=== PATIENT | female | born 1960 | race Caucasian/White ===

== ENCOUNTER → 2020-01-03 13:24 | Outpatient (BNVA) | payer BC, SELFPAY | PROVIDERS: Family Provider Family Medicine; Visit Provider Emergency Medicine | DX: Z20.828 Contact with and (suspected) exposure to other viral communicable diseases (principal) | CPT/HCPCS: 87635 ==

== ENCOUNTER → 2020-03-13 13:45 | Outpatient (BNVA) | payer BC, SELFPAY | PROVIDERS: Family Provider Family Medicine; PCP Family Medicine; Visit Provider Internal Medicine | DX: M25.50 Pain in unspecified joint (principal); R79.82 Elevated C-reactive protein (CRP); Z79.52 Long term (current) use of systemic steroids; Z79.899 Other long term (current) drug therapy; M16.10 Unilateral primary osteoarthritis, unspecified hip; F17.210 Nicotine dependence, cigarettes, uncomplicated | CPT/HCPCS: 36415; 99203; 99204 ==

== ENCOUNTER 2020-03-13 15:35 | Outpatient (CLI) | payer BC, SELFPAY ==
--- NOTE | 2020-03-13 15:45 | XR_ITS ---
WS: [id number] LEFT KNEE: 2 VIEW(S) TECHNIQUE: AP and lateral. HISTORY: R79.82 - Elevated C-reactive protein (CRP) COMPARISON: None available. No fracture or dislocation. No joint space narrowing or osteophytes. No joint effusion. No soft tissue abnormality. XR/XR knee LT 1-2V [id number] IMPRESSION: Normal LEFT knee.
--- NOTE | 2020-03-13 15:45 | XR_ITS ---
WS: [id number] Bilateral hips. HISTORY: 2 views of each hip. Very minimal degenerative changes involving the hip joints and the superior acetabulum. Mild sclerosi s with irregularity of the cortex. There is also mild bilateral inferior SI joint sclerosis and widen ing. XR/XR hip BI 3-4V wo/w pel [id number] IMPRESSION: 1. 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 2. Very mild inferior SI joint widening and sclerosis.
--- NOTE | 2020-03-13 15:45 | XR_ITS ---
WS: [id number] LEFT HAND: 2 VIEW(S) TECHNIQUE: PA and lateral. HISTORY: R79.82 - Elevated C-reactive protein (CRP) COMPARISON: None available. No acute fracture or dislocation. No soft tissue or bone abnormality. No erosions or soft tissue edema. XR/XR hand LT 2V [id number] IMPRESSION: Normal LEFT hand.
--- NOTE | 2020-03-13 15:45 | XR_ITS ---
WS: [id number] RIGHT HAND: 2 VIEW(S) TECHNIQUE: PA and lateral. HISTORY: R79.82 - Elevated C-reactive protein (CRP) COMPARISON: 06/01/2010 No acute fracture or dislocation. No soft tissue or bone abnormality. No erosions or soft tissue edema. XR/XR hand RT 2V [id number] IMPRESSION: Normal RIGHT hand.
--- NOTE | 2020-03-13 15:45 | XR_ITS ---
WS: [id number] RIGHT KNEE: 2 VIEW(S) TECHNIQUE: AP and lateral. HISTORY: R79.82 - Elevated C-reactive protein (CRP) COMPARISON: None available. No fracture or dislocation. No joint space narrowing or osteophytes. No joint effusion. No soft tissue abnormality. XR/XR knee RT 1-2V [id number] IMPRESSION: Normal RIGHT knee.
== END 2020-03-13 15:36 | disposition home or self-care (01) ==
LOC: RADWPI 15:40
PROVIDERS: PCP Family Medicine; Visit Provider Internal Medicine
DX: R79.82 Elevated C-reactive protein (CRP) (principal); M16.0 Bilateral primary osteoarthritis of hip; D86.9 Sarcoidosis, unspecified
CPT/HCPCS: 73120; 73522; 73560; 80053; 81003; 82310; 82550; 82728; 83516; 83540; 83970; 84100; 85651; 86140; 86704; 86803; 86812; 87340

== ENCOUNTER → 2020-04-08 14:11 | Outpatient (BNVA) | payer BC, SELFPAY | PROVIDERS: PCP Family Medicine; Visit Provider Internal Medicine | DX: R79.82 Elevated C-reactive protein (CRP) (principal); M25.50 Pain in unspecified joint; R76.8 Other specified abnormal immunological findings in serum; M16.9 Osteoarthritis of hip, unspecified; R21 Rash and other nonspecific skin eruption; F17.210 Nicotine dependence, cigarettes, uncomplicated | CPT/HCPCS: 99214 ==

== ENCOUNTER 2020-07-28 13:02 | Outpatient (CLI) | payer BC, SELFPAY ==
[2020-07-28 13:27] LABS: Basophils % 0.6 %; Eosinophils # 0.1 10^3/uL (0.0-0.8); Eosinophils % 1.9 %; Hematocrit 46.6 % (37.0-47.0); Lymphocytes # 1.9 10^3/uL (0.8-4.8); Lymphocytes % 27.5 %; Mean Corpuscular HGB Conc 32.2 g/dL (30.0-36.0); Mean Corpuscular Hemoglobin 29.2 pg (28.0-34.0); Mean Corpuscular Volume 90.7 fL (81-99); Mean Platelet Volume 9.9 fL (7.4-10.4); Monocytes # 0.4 10^3/uL (0.2-0.9); Monocytes % 5.8 %; Neutrophils # 4.34 10^3/uL (1.8-7.7); Neutrophils % 64.1 %; Nucleated Red Blood Cells % 0 %; Platelet Count 226 10^3/cmm (130-400); Red Blood Count 5.14 10^6/uL (4.1-5.3); Red Cell Distribution Width 13.6 % (12.1-15.1); White Blood Count 6.8 10^3/uL (4.0-10.0)
[2020-07-28 14:13] LABS: Alanine Aminotransferase 13 U/L (0-33); Albumin Level 4.4 g/dL (3.5-5.2); Alkaline Phosphatase 88 IU/L (35-105); Anion Gap 14.2 (5-19); Aspartate Amino Transferase 17 U/L (0-32); Blood Urea Nitrogen 16 mg/dL (6-20); C Reactive Protein 6.1 mg/L (0.0-4.9); Calcium 9.3 mg/dL (8.5-10.5); Carbon Dioxide 25 mmol/L (22-29); Chloride 104 mmol/L (98-107); Globulin 2.7 g/dL (1.3-4.6); Glomerular Filtration Rate 64.3 mL/min (90-130); Glucose 78 mg/dL (65-115); Osmolality Calculated 288 mOsm/kg (285-295); Potassium 4.2 mmol/L (3.5-5.1); Sodium 139 mmol/L (136-145); Total Bilirubin 0.3 mg/dL (0.15-1.2); Total Protein 7.1 g/dL (6.6-8.7)
[2020-07-28 15:20] LABS: Erythrocyte Sedimentation Rate 11 mm/hr (0-15)
== END 2020-07-28 13:03 | disposition home or self-care (01) ==
PROVIDERS: PCP Family Medicine; Visit Provider Internal Medicine
DX: M16.9 Osteoarthritis of hip, unspecified (principal); R76.8 Other specified abnormal immunological findings in serum; R79.82 Elevated C-reactive protein (CRP); Z79.899 Other long term (current) drug therapy
CPT/HCPCS: 36415; 80053; 85025; 85651; 86140

== ENCOUNTER → 2020-07-31 08:48 | Outpatient (BNVA) | payer BC, SELFPAY | PROVIDERS: PCP Family Medicine; Visit Provider Internal Medicine | DX: R79.82 Elevated C-reactive protein (CRP) (principal); R76.8 Other specified abnormal immunological findings in serum; M25.50 Pain in unspecified joint; Z79.899 Other long term (current) drug therapy; R21 Rash and other nonspecific skin eruption; F17.210 Nicotine dependence, cigarettes, uncomplicated | CPT/HCPCS: 99213; 99214 ==

== ENCOUNTER 2022-05-21 10:04 | Outpatient (CLI) | payer OTHER, SELFPAY ==
--- NOTE | 2022-05-21 10:16 | US_ITS ---
WS: [id number] URINARY BLADDER ULTRASOUND HISTORY: Symptom; incomplete BLADDER EMPTYING COMPARISON: None available. Urinary bladder is well distended. No intraluminal filling defect. No free fluid adjacent to the urin gerald bladder. Prevoid volume is 478 cc. Post void volume 192 cc. US/ bladder [id number] Impression: 1. Normally distended urinary bladder with no intraluminal filling defect. 2. Moderate post void residual. Incomplete emptying of the urinary bladder.
== END 2022-05-21 10:05 | disposition home or self-care (01) ==
PROVIDERS: PCP Family Medicine; Visit Provider Family Medicine
DX: R39.14 Feeling of incomplete bladder emptying (principal)
CPT/HCPCS: 76857

== ENCOUNTER → 2022-06-23 16:00 | Outpatient (BNVA) | payer OTHER, SELFPAY | PROVIDERS: PCP Family Medicine; Referring Provider Family Medicine; Visit Provider Obstetrics & Gynecology | DX: R33.9 Retention of urine, unspecified (principal); Z12.4 Encounter for screening for malignant neoplasm of cervix | CPT/HCPCS: 84315; 87086; 87624 ==

== ENCOUNTER → 2022-07-02 10:52 | Outpatient (BNVA) | payer OTHER, SELFPAY | PROVIDERS: PCP Family Medicine; Referring Provider Nurse Practitioner Family; Visit Provider Nurse Practitioner Family | DX: L82.1 Other seborrheic keratosis (principal); L30.9 Dermatitis, unspecified; D48.5 Neoplasm of uncertain behavior of skin; L85.3 Xerosis cutis | CPT/HCPCS: 11103; 11104; 99203 ==

== ENCOUNTER → 2022-07-10 11:41 | Outpatient (BNVA) | payer OTHER, SELFPAY | PROVIDERS: PCP Family Medicine; Visit Provider Registered Nurse Neonatal Intensive Care | DX: R30.0 Dysuria (principal) | CPT/HCPCS: 81000; 87077; 87086; 87184 ==

== ENCOUNTER → 2022-07-28 08:40 | Outpatient (BNVA) | payer OTHER, SELFPAY | PROVIDERS: PCP Family Medicine; Visit Provider Obstetrics & Gynecology | DX: R32 Unspecified urinary incontinence (principal); R10.2 Pelvic and perineal pain | CPT/HCPCS: 76830 ==

== ENCOUNTER → 2022-10-28 15:25 | Outpatient (BNVA) | payer OTHER, SELFPAY | PROVIDERS: PCP Family Medicine; Visit Provider Obstetrics & Gynecology | DX: R10.2 Pelvic and perineal pain (principal) | CPT/HCPCS: 76830 ==

== ENCOUNTER 2023-03-16 11:54 | Outpatient (CLI) | payer OTHER, SELFPAY ==
--- NOTE | 2023-03-16 | MM_ITS ---
WS: [id number] Bilateral screening 3D tomosynthesis digital mammogram, 03/16/2023 Clinical Data: SCREENING Comparison: None. Findings: The breast parenchymal pattern shows fibroglandular tissue. No spiculated masses or clustered calcifi cations are seen. There are no secondary signs of carcinoma. There are lymph nodes in both axilla. Impression: 1. Negative bilateral mammogram with no prior exam for review. 2. Recommend annual screening mammograms. MM/[place] [id number] BIRADS: 1-Negative FOLLOW UP: 1 Year Follow-up The CAD color checker was used.
== END 2023-03-16 11:55 | disposition home or self-care (01) ==
LOC: RAD 11:54
PROVIDERS: PCP Family Medicine; Visit Provider Family Medicine
DX: Z12.31 Encounter for screening mammogram for malignant neoplasm of breast (principal)
CPT/HCPCS: 77063; 77067

== ENCOUNTER 2023-10-06 10:28 | Emergency (ER) | payer OTHER, SELFPAY ==
[2023-10-06 11:03] VITALS: BP 111/57; PULSE 90; RESP 20; TEMP 36.6; O2SAT 98; BMI 33.0
--- NOTE | 2023-10-06 12:31 | ED_ITS ---
HPI - Female Genitourinary 2 General: Chief complaint: Urogenital-Female Stated complaint: abd and back pain Time Seen by Provider: 10/06/23 11:56 History of Present Illness: 63-year-old female presents emergency ro om complaining of left side pain radiates down into the groin. She has noticed increased in frequency of urination but no hematuria or dysuria. When I talked to the patient she localized the pain more to the left lower quadrant. She denies any diarrhea no hematochezia or melena. No chest pain or shortness of breath. No radiation of discomfort into the left leg. No recent trauma. Associated symptoms: Reports abdominal pain Related Data Home Medications Medication Instructions Recorded Confirmed loratadine 10 mg tablet 10 mg PO DAILY 10/06/23 10/06/23 temazepam 15 mg capsule 15 mg PO BEDTIME PRN sleep 10/06/23 10/06/23 Previous Rx's Medication Instructions Recorded albuterol sulfate 90 mcg/actuation 2 puff inhalation Q4H PRN 01/01/23 aerosol inhaler shortness of breath or wheezing #8.5 grams benzonatate 200 mg capsule 200 mg PO TID PRN cough #20 caps 01/01/23 bethanechol chloride 25 mg tablet 25 mg PO TID #90 tabs 03/18/23 cyclobenzaprine 5 mg tablet 5 mg PO TID PRN muscle spasm #20 05/02/23 tabs diclofenac sodium 75 mg 75 mg PO Q12H PRN pain #20 tabs 10/06/23 tablet,delayed release Allergies Allergy/AdvReac Type Severity Reaction Status Date / Time amoxicillin Allergy rash Verified 05/02/23 13:48 Review of Systems 2 Const: Denies: fever(s) or chills Card: Denies: chest pain Resp: Denies: dyspnea GI: Reports: abdominal pain : Reports: flank pain and urinary frequency; Denies: dysuria or urinary urgency Musc: Denies: neck pain or back pain Skin/Breast: Denies: rash PFSH ED 2 PFSH: Family History Father Hypertension Mother Dementia Diabetes Denies family history of Colon cancer Ovarian cancer Heart disease Breast cancer Uterine cancer Thyroid disease Stroke Physical Exam 2 Const: GENERAL APPEARANCE: cooperative ORIENTATION/CONSCIOUSNESS: Yes awake, Yes oriented to person, Yes oriented to place and Yes oriented to time HENMT: COMMON NORMALS: normocephalic, atraumatic and hearing grossly normal bilaterally HEAD & SCALP: normocephalic and atraumatic Resp: COMMON NORMALS: normal respiratory effort, No retractions, No use of accessory muscles and clear to auscultation bilaterally AUSCULTATION: clear to auscultation bilaterally Cardio: COMMON NORMALS: regular rate, regular rhythm and No murmurs present (Cardio) RATE: regular rate RHYTHM: regular rhythm GI: COMMON NORMALS: Soft to palpation and No hepatosplenomegaly present A USCULTATION: Yes normoactive bowel sounds PALPATION: Yes Soft to palpation, No Tenderness to palpation present (GI), No Guarding due to palpation present (GI) and Yes No hepatosplenomegaly present Extremity: COMMON NORMALS: normal to inspection, capillary refill normal, no clubbing, cyanosis or edema, no calf tenderness and no pedal edema Neuro: SENSORIUM/ORIENTATION: Yes oriented to person, Yes oriented to place and Yes oriented to time Skin: COMMON NORMALS: no rashes or lesions noted GENERAL SKIN EXAM: no rashes or lesions noted Course 2 Vital Signs: Vital signs: Vital Signs Temperature 97.8 F 10/06/23 11:03 Pulse Rate 87 10/06/23 15:17 Respiratory Rate 20 H 10/06/23 11:03 Blood Pressure 138/71 10/06/23 15:17 Pulse Oximetry 97 10/06/23 15:17 Oxygen Delivery Me thod Room Air 10/06/23 15:00 MDM - Female Medical Decision Making Labs and imaging reviewed no leukocytosis. No hematuria no signs of cystitis. Very slight elevation in alk phos probably not clinically significant at this point. Patient has colonic diverticulosis without acute diverticulitis no other significant finding made. Suspect this may be more muscle strain. It is possible that she passed this stone but there is no evidence of using her urine or evidence of residual hydronephrosis or dilation of the ureters. Discharge home clear liquid diet advance as tolerated recheck if not improving Medical Records I reviewed the patient's medical records. Lab Data I reviewed the patient's lab results. 10/06/23 12:41 10/06/23 12:41 Radiology Impressions Abdomen/Pelvis CT 10/06/23 13:10 IMPRESSION: 1. No renal obstruction or calcifications. No hydronephrosis. 2. Mild distal colonic diverticulosis without acute diverticulitis. 3. No free fluid or adenopathy. 4. Mild atherosclerosis aorta. Laboratory Results WBC 9.11 10^3/uL (3.29-11.43) 10/06/23 12:41 RBC 5.62 10^6/uL (3.85-5.65) 10/06/23 12:41 Hgb 16.10 g/dL (11.27-16.99) 10/06/23 12:41 Hct 50.9 % (36-47) H 10/06/23 12:41 MCV 90.6 fl (85-98) 10/06/23 12:41 MCH 28.6 pg (27-33) 10/06/23 12:41 MCHC 31.6 g/dL (30-55) 10/06/23 12:41 RDW 13.6 % (12.1-15.1) 10/06/23 12:41 Plt Count 299 10^3/cmm (157-399) 10/06/23 12:41 MPV 9.8 fL (7.4-10.4) 10/06/23 12:41 Neut % (Auto) 68.8 % 10/06/23 12:41 Lymph % (Auto) 23.4 % 10/06/23 12:41 [place] % (Auto) 5.6 % 10/06/23 12:41 Eos % (Auto) 1.4 % 10/06/23 12:41 Baso % (Auto) 0.5 % 10/06/23 12:41 Neut # (Auto) 6.26 10^3/uL (1.8-7.7) 10/06/23 12:41 Lymph # (Auto) 2.1 10^3/uL (0.8-4.8) 10/06/23 12:41 [place] # (Auto) 0.5 10^3/uL (0.2-0.9) 10/06/23 12:41 Eos # (Auto) 0.1 10^3/uL (0.0-0.8) 10/06/23 12:41 Baso # (Auto) 0.1 10^3/uL (0.0-0.1) 10/06/23 12:41 Nucleated RBC % (auto) 0 % 10/06/23 12:41 Nucleated RBCs # 0.0 /100WBC 10/06/23 12:41 Sodium 142 mmol/L (136-145) 10/06/23 12:41 Potassium 4.5 mmol/L (3.5-5.1) 10/06/23 12:41 Chloride 103 mmol/L (98-107) 10/06/23 12:41 Carbon Dioxide 25 mmol/L (22-29) 10/06/23 12:41 Anion Gap 18.5 (5-19) 10/06/23 12:41 BUN 21 mg/dL (8-23) 10/06/23 12:41 Creatinine 0.9 mg/dL (0.5-0.9) 10/06/23 12:41 GFR Calculation 63.4 mL/min (90-130) L 10/06/23 12:41 Glucose 102 mg/dL (65-115) 10/06/23 12:41 Calculated Osmolality 297 mOsm/kg (285-295) H 10/06/23 12:41 Calcium 9.9 mg/dL (8.5-10.5) 10/06/23 12:41 Total Bilirubin 0.4 mg/dL (0.15-1.2) 10/06/23 12:41 AST 13 U/L (0-32) 10/06/23 12:41 ALT 13 U/L (0-33) 10/06/23 12:41 Alkaline Phosphatase 109 U/L (35-105) H 10/06/23 12:41 Total Protein 8.1 g/dL (6.6-8.7) 10/06/23 12:41 Albumin 4.7 g/dL (3.5-5.2) 10/06/23 12:41 Globulin 3.4 g/dL (1.3-4.6) 10/06/23 12:41 Lipase 15 U/L (13-60) 10/06/23 12:41 Urine Color Yellow (Yellow) 10/06/23 12:04 Urine Appearance Clear (CLEAR) 10/06/23 12:04 Urine pH 6.5 (5-7) 10/06/23 12:04 Ur Specific [place] 1.005 (1.005-1.030) 10/06/23 12:04 Urine Protein Negative (Negative) 10/06/23 12:04 Urine Glucose (UA) Negative (Normal) 10/06/23 12:04 Urine Ketones Negative (Negative) 10/06/23 12:04 Urine Blood Negative (Negative) 10/06/23 12:04 Urine Nitrate Negative (Negative) 10/06/23 12:04 Urine Bilirubin Negative (Negative) 10/06/23 12:04 Urine Urobilinogen 0.2 mg/dL (Negative) 10/06/23 12:04 Ur Leukocyte Esterase Negative (Negative) 10/06/23 12:04 Urine RBC 0-2 /hpf (0-2) 10/06/23 12:04 Urine WBC 0-5 /hpf (0-5) 10/06/23 12:04 Ur Squamous Epith Cells 0-5 /hpf (0-5) 10/06/23 12:04 Amorphous Sediment Not Reportable 10/06/23 12:04 Urine Bacteria None seen /hpf (NONE) 10/06/23 12:04 Hyaline Casts 0-4 /lpf H 10/06/23 12:04 All radiology interpretation(s) finalized by discharge Discharge Plan Discharge Patient Disposition: Home Clinical Impression: Muscular abdominal pain in left flank Condition: Stable Prescriptions: New diclofenac sodium 75 mg tablet,delayed release (DR/EC) 75 mg PO Q12H PRN (Reason: pain) Qty: 20 0RF No Action cyclobenzaprine 5 mg tablet 5 mg PO TID PRN (Reason: muscle spasm) Qty: 20 0RF albuterol sulfate 90 mcg/actuation HFA aerosol inhaler 2 puff inhalation Q4H PRN (Reason: shortness of breath or wheezing) Qty: 8.5 0RF benzonatate 200 mg capsule 200 mg PO TID PRN (Reason: cough) Qty: 20 0RF bethanechol chloride 25 mg tablet 25 mg PO TID Qty: 90 1RF loratadine 10 mg tablet 10 mg PO DAILY temazepam 15 mg capsule 15 mg PO BEDTIME PRN (Reason: sleep) Discharge Orders: Discharge ED (Routine); Ordered 10/06/23 Ordered By: Herber Mercado Referrals: Althea Luna DO [Primary Care Provider] - Discharge Diet: Usual diet Discharge Activity: Increase activity as tolerated Patient Instructions: Abdominal Pain (ED), Opioid Safety, Pain Management Activity Restrictions/Additional Instructions: Thank you for choosing [facility] for your healthcare needs today. It is very important that you follow up as instructed or that you return to the Emergency Department should you have concerns or if your condition changes or worsens in any way. You were seen today for complaint of left flank pain. There is no sign of blood in your urine or infection. CT did not show any acute abnormalities your white count was normal your electrolytes and kidney function were also normal. Given the positional aspect of this suspect it is musculoskeletal in nature. You can continue to use the cyclobenzaprine you were previously prescribed as needed additionally can use diclofenac as needed follow-up with your primary care doctor. Coding Level of Care Code ED Sales Account Representative for Gerri Tolbert
[2023-10-06 12:36] LABS: Charge for UA Resulting for Rev
[2023-10-06 12:43] LABS: Bilirubin Urine Negative (Negative); Blood Urine Negative (Negative); Glucose Urine UA Negative (Normal); Ketones Urine Negative (Negative); Leukocyte Esterase Urine Negative (Negative); Nitrate Urine Negative (Negative); Protein Urine Negative (Negative); Specific Gravity, Urine 1.005 (1.005-1.030); Urine Appearance Clear (CLEAR); Urine Color Yellow (Yellow); Urobilinogen Urine 0.2 mg/dL (Negative); pH Urine 6.5 (5-7)
[2023-10-06] MEDS: sodium chloride 0.9% 1,000 ML 999 ML IV (12:43)
[2023-10-06] MEDS: ondansetron 2 mg/ML SDV 2 mL 4 MG IVP (12:43)
[2023-10-06 12:47] LABS: Basophils # 0.1 10^3/uL (0.0-0.1); Basophils % 0.5 %; Eosinophils # 0.1 10^3/uL (0.0-0.8); Eosinophils % 1.4 %; Hematocrit 50.9 % (36-47); Lymphocytes # 2.1 10^3/uL (0.8-4.8); Lymphocytes % 23.4 %; Mean Corpuscular HGB Conc 31.6 g/dL (30-55); Mean Corpuscular Hemoglobin 28.6 pg (27-33); Mean Corpuscular Volume 90.6 fl (85-98); Mean Platelet Volume 9.8 fL (7.4-10.4); Monocytes # 0.5 10^3/uL (0.2-0.9); Monocytes % 5.6 %; Neutrophils # 6.26 10^3/uL (1.8-7.7); Neutrophils % 68.8 %; Nucleated Red Blood Cells % 0 %; Platelet Count 299 10^3/cmm (157-399); Red Blood Count 5.62 10^6/uL (3.85-5.65); Red Cell Distribution Width 13.6 % (12.1-15.1); White Blood Count 9.11 10^3/uL (3.29-11.43)
[2023-10-06 12:49] LABS: Bacteria Urine None Seen /hpf; Hyaline Casts Urine 0-4 /lpf; RBC Urine 0-2 /hpf (0-2); Squamous Epithelial Cell Urine 0-5 /hpf (0-5); WBC Urine 0-5 /hpf (0-5)
[2023-10-06 13:04] LABS: Alanine Aminotransferase 13 U/L (0-33); Albumin Level 4.7 g/dL (3.5-5.2); Alkaline Phosphatase 109 U/L (35-105); Anion Gap 18.5 (5-19); Aspartate Amino Transferase 13 U/L (0-32); Blood Urea Nitrogen 21 mg/dL (8-23); Calcium 9.9 mg/dL (8.5-10.5); Carbon Dioxide 25 mmol/L (22-29); Chloride 103 mmol/L (98-107); Globulin 3.4 g/dL (1.3-4.6); Glomerular Filtration Rate 63.4 mL/min (90-130); Glucose 102 mg/dL (65-115); Lipase 15 U/L (13-60); Osmolality Calculated 297 mOsm/kg (285-295); Potassium 4.5 mmol/L (3.5-5.1); Sodium 142 mmol/L (136-145); Total Bilirubin 0.4 mg/dL (0.15-1.2); Total Protein 8.1 g/dL (6.6-8.7)
--- NOTE | 2023-10-06 13:10 | CT_ITS ---
WS: [id number] CT ABDOMEN AND PELVIS NONCONTRAST HISTORY: Abdominal pain, LEFT flank pain. TECHNIQUE: Imaging performed through the abdomen and pelvis. Coronal and sagittal reformats are submi tted. All CT scans at [facility] use at least one of these dose optimization techniques: auto mated exposure control; mA and/or kV adjustment per patient size (includes targeted exams where dose is matched to clinical indication); or iterative reconstruction. DLP: 783.40 mGy.cm COMPARISON: None available. Lower thorax: Lung bases are clear. Visualized heart is normal. No hiatal hernia. Liver: Normal size liver. No mass or bile duct dilatation. Gallbladder: Normal gallbladder. No pericholecystic fluid or cholelithiasis. No gallbladder wall thic [place]. Pancreas: Normal size and attenuation. Normal pancreatic duct. No pancreatitis or mass. Spleen: Normal. Adrenal glands: Normal RIGHT adrenal gland. Very slight thickening of the lateral limb LEFT adrenal g land. Right kidney: Normal size kidney with no mass or hydronephrosis. Left kidney: Normal size kidney with no mass or hydronephrosis. Aorta: Mild atherosclerosis abdominal aorta with no aneurysm. No free fluid, intraperitoneal air or significant lymphadenopathy. GI tract: Normally distended stomach. No small bowel obstruction. Normal appendix. Mild descending an d sigmoid diverticular burden without acute diverticulitis. Abdominal wall: Small umbilical hernia contains fat only. Pelvis: No free fluid. Uterus is present. No pelvic mass. Urinary bladder is minimally distended. Osseous structures: Unremarkable. CT/CT abdomen pelvis wo con [id number] IMPRESSION: 1. No renal obstruction or calcifications. No hydronephrosis. 2. Mild distal colonic diverticulosis without acute diverticulitis. 3. No free fluid or adenopathy. 4. Mild atherosclerosis aorta.
[2023-10-06 15:00] VITALS: BP 138/71; PULSE 87; O2SAT 97
[2023-10-06 15:17] VITALS: BP 138/71; PULSE 87; O2SAT 97
== END 2023-10-06 15:23 | disposition home or self-care (01) ==
PROVIDERS: Emergency Provider Family Medicine; PCP Family Medicine
DX: M79.18 Myalgia, other site (principal)
CPT/HCPCS: 74176; 80053; 81003; 81015; 83690; 85025; 96374; 99285; J2405; J7030

== ENCOUNTER 2024-01-04 11:15 | Outpatient (CLI) | payer OTHER, SELFPAY ==
--- NOTE | 2024-01-04 11:20 | XR_ITS ---
WS: [id number] Exam: XR hip LT 2-3V wo/w pel* [id number] Date/Time of Exam: 01/04/2024 11:33 AM Reason For Exam: LOW BACK PAIN Comparison 03/13/2020. No fracture noted. Minimal degenerative change of the acetabulum. Normal soft tissues. XR/XR hip LT 2-3V wo/w pel* [id number] IMPRESSION: 1. Minimal DJD. No change.
== END 2024-01-04 11:16 | disposition home or self-care (01) ==
LOC: RAD 11:17
PROVIDERS: PCP Family Medicine; Visit Provider Family Medicine
DX: M54.50 Low back pain, unspecified (principal)
CPT/HCPCS: 73502

== ENCOUNTER 2024-01-11 11:00 | Outpatient (CLI) | payer OTHER, SELFPAY ==
--- NOTE | 2024-01-11 11:06 | XRR_ITS ---
PROCEDURE INFORMATION: Exam: XR Lumbosacral Spine Exam date and time: 01/11/2024 11:09 AM Age: 63 years old Clinical indication: Low back pain; Patient HX: Pain lower back and left hip xfew years, no specific injury, no numbness or tingling TECHNIQUE: Imaging protocol: Radiologic exam of the lumbosacral spine. Views: 6 or more views. Including flexion and extension views. COMPARISON: CR XR hip LT 2-3V wo/w pel* [id number] 01/04/2024 11:31 AM FINDINGS: Bones/joints: Multilevel [id number] disc space narrowing and productive degenerative endplate changes throughout the spine. Soft tissues: Unremarkable. Vasculature: Scattered vascular calcifications. XR/XR lumbar spine 6V w f/e [id number] IMPRESSION: 1. Multilevel [id number] disc space narrowing and productive degenerative endplate changes throughout the spine. 2. Scattered vascular calcifications.
== END 2024-01-11 11:01 | disposition home or self-care (01) ==
LOC: RAD 11:01
PROVIDERS: PCP Family Medicine; Visit Provider Family Medicine
DX: M99.63 Osseous and subluxation stenosis of intervertebral foramina of lumbar region (principal)
CPT/HCPCS: 72114

== ENCOUNTER 2024-07-29 11:44 | Emergency (ER) | payer MEDICAID, SELFPAY ==
--- NOTE | 2024-07-29 11:51 | CTR_ITS ---
PROCEDURE INFORMATION: Exam: CT Head Without Contrast Exam date and time: 07/29/2024 11:55 AM Age: 64 years old Clinical indication: Stroke-like symptoms; Altered mental status/memory loss and speech disturbance; Additional info: Symptoms of acute stroke TECHNIQUE: Imaging protocol: Computed tomography of the head without contrast. Radiation optimization: All CT scans at this facility use at least one of these dose optimization techniques: automated exposure control; mA and/or kV adjustment per patient size (includes targeted exams where dose is matched to clinical indication); or iterative reconstruction. Other technique: STROKE PROTOCOL was implemented. COMPARISON: CT head wo con* [id number] 10/18/2018 9:00 PM RADIATION DOSE METRICS: Total DLP (mGy-cm): 1028.65 FINDINGS: Brain: Normal. No hemorrhage. Unremarkable white matter. No mass effect. Cerebral ventricles: No ventriculomegaly. Paranasal sinuses: Frothy secretions in the left sphenoid sinus and bilateral maxillary sinuses. Mastoid air cells: Visualized mastoid air cells are well aerated. Bones: Unremarkable. No acute fracture. Soft tissues: Unremarkable. CT/CT head thrombolytic [id number] IMPRESSION: No large territorial infarct or intracranial bleed. ASSESSMENT: ASPECTS ([place] Stroke Program Early CT Score) is 10.
--- NOTE | 2024-07-29 11:55 | ED_ITS ---
HPI - Neuro Symptoms/Deficit 2 General: Chief Complaint: Neuro Symptoms/Deficit Stated Complaint: stroke like symptoms (sent by ems) Time Seen by Provider: 07/29/24 11:55 Source: patient Mode of arrival: ambulatory Limitations: no limitations History of Present Illness: 64-year-old female states that 2 hours a go she is having strokelike symptoms. Family states that she is having weakness in her left arm and dropped her cup she had had slurred speech confusion and was drooling out of her mouth. Since then her symptoms are completely resolved she is back to her baseline no history of strokes or TIAs in the past denies any headache or fever Associated symptoms: Deny chest pain, headache(s), nausea or vomiting Related Data Home Medications ?Medication ?Instructions ?Recorded ?Confirmed loratadine 10 mg tablet 10 mg PO DAILY 10/06/2309/15 temazepam 15 mg capsule 15 mg PO BEDTIME PRN sleep 0 10/06/23 10/06/23 Previous Rx's ?Medication ?Instructions ?Recorded albuterol sulfate 90 mcg/actuation 2 puff inhalation Q 4H PRN 01/01/23 aerosol inhaler shortness of breath or wheez ing #8.5 grams benzonatate 200 mg capsule 200 mg PO TID PRN cough #20 caps 01/01/23 bethanechol chloride 25 mg tablet 25 mg PO TID #90 tab s 03/18/23 cyclobenzaprine 5 mg tablet 5 mg PO TID PRN muscle spa sm #20 05/02/23 tabs diclofenac sodium 75 mg 75 mg PO Q12H PRN pain #20 t abs 10/06/23 tablet,delayed release aspirin 81 mg capsule 81 mg PO DAILY #30 caps 07/15 07/08 atorvastatin 80 mg tablet (Lipitor) 80 mg PO DAILY #30 tabs 07/29/24 Allergies Allergy/AdvReac Type Severity Reaction Status Date / Time amoxicillin Allergy rash Verified 05/02/23 13:48 Review of Systems 2 Const: Denies: fever(s), chills, body aches or change in appetite Eyes: Denies: blurry vision or eye discomfort ENMT: Denies: throat pain or dental pain Card: Denies: chest pain Resp: Denies: dyspnea GI: Denies: abdominal pain, nausea, vomiting or diarrhea Musc: Denies: neck pain or back pain Skin/Breast: Denies: rash Neuro: Reports: weakness in extremities, confusion and Slurred speech present; Denies: headache(s) PFSH ED 2 PFSH: Family History Father Hypertension Mother Dementia Diabetes Denies family history of Colon cancer Ovarian cancer Heart disease Breast cancer Uterine cancer Thyroid disease Stroke NIH stroke score 2 NIHSS: Level Of Consciousness - 1a: 0 Level Of Consciousness Questions - 1b: Both Correct Level Of Consciousness Commands - 1c: Both Correct Best Gaze - 2: Normal Visual Vega - 3: No Visual Loss Facial Palsy - 4: N ormal Motor Arm Right - 5: No Drift Motor Arm Left - 5: No Drift Motor Leg Right - 6: No Drift Motor Leg Left - 6: No Drift Limb Ataxia - 7: A bsent Sensory - 8: Normal Best Language - 9: No Aphasia Dysarthia - 10: Normal Extinction And Inattention - 11: 0 Score: Total Score: 0 Physical Exam 2 Const: COMMON NORMALS: no acute distress, patient oriented x3 and healthy appearing HENMT: COMMON NORMALS: normocephalic and atraumatic HEAD & SCALP: n ormocephalic and atraumatic Neck/C-Spine: COMMON NORMALS: full ROM and supple Chest: COMMONS NORMALS: normal inspection of the chest Resp: COMMON NORMALS: normal respiratory effort, No retractions, No use of accessory muscles and clear to auscultation bilaterally AUSCULTATION: clear to auscultation bilaterally Cardio: COMMON NORMALS: regular rhythm and No murmurs present (Cardio) R ATE: tachycardic RHYTHM: regular rhythm GI: COMMON NORMALS: Normal to inspection, nondistended, normoactive bowel sounds present, Soft to palpation, non-tender and no masses PALPATION: Yes Soft to palpation Extremity: COMMON NORMALS: normal to inspection and full ROM Neuro: COMMON NORMALS: patient oriented x3, moves all extremities and no focal motor deficits CRANIAL NERVES: Yes CN normal except as noted SPEECH: s peech normal MOTOR EXAM: 5/5 motor strength present throughout Psych: COMMON NORMALS: mental status grossly normal, Normal thought process present and cooperative THOUGHT PROCESS: Normal thought process present Skin: COMMON NORMALS: no rashes or lesions noted and no wounds GENERAL SKIN EXAM: no rashes or lesions noted Course 2 Vital Signs: Vital signs: Vital Signs Temperature 98.1 F 06/15/25 11:59 Pulse Rate 98 07/29/24 13:06 Respiratory Rate 18 07/29/24 11:59 Blood Pressure 142/76 07/29/24 13:06 Pulse Oximetry 94 07/29/24 13:06 Oxygen Delivery Me thod Room Air 07/29/24 11:59 MDM - Neuro Symptoms/Deficit Medical Decision Making Patient presents for likely TIA. She is back to her normal NIH is 0 CT scan here is negative. I did recommend admission she states she would like to go home we will start her on statin aspirin and get her follow-up with neurology Medical Records I reviewed the patient's medical records. Lab Data I reviewed the patient's lab results. 07/29/24 12:22 07/29/24 12:[address] 07/29/24 11:51 IMPRESSION: No large territorial infarct or intracranial bleed. ASSESSMENT: ASPECTS ([place] Stroke Program Early CT Score) is 10. ADDENDUM: 07/29/24 1209 THIS REPORT CONTAINS FINDINGS THAT MAY BE CRITICAL TO PATIENT CARE. The findings were verbally communicated via telephone conference with CALOS PEÑA at 12:07 PM CDT on 07/29/2024. The findings were acknowledged and understood. Laboratory Results WBC 9.45 10^3/uL (3.29-11.43) 07/29/24 12:22 RBC 5.30 10^6/uL (3.85-5.65) 07/29/24 12:22 Hgb 15.30 g/dL (11.27-16.99) 07/29/24 12:22 Hct 50.6 % (36-47) H 07/29/24 12:22 MCV 95.5 fl (85-98) 07/29/24 12:22 MCH 28.9 pg (27-33) 07/29/24 12:22 MCHC 30.2 g/dL (30-55) 07/29/24 12:22 RDW 13.9 % (12.1-15.1) 07/29/24 12:22 Plt Count 213 10^3/cmm (157-399) 07/29/24 12:22 MPV 10.5 fL (7.4-10.4) H 07/29/24 12:22 Neut % (Auto) 83.8 % 07/29/24 12:22 Lymph % (Auto) 11.5 % 07/29/24 12:22 Jack % (Auto) 3.4 % 07/29/24 12:22 Eos % (Auto) 0.7 % 07/29/24 12:22 Baso % (Auto) 0.4 % 07/29/24 12:22 Neut # (Auto) 7.91 10^3/uL (1.8-7.7) H 07/29/24 12:22 Lymph # (Auto) 1.1 10^3/uL (0.8-4.8) 07/29/24 12:22 Jack # (Auto) 0.3 10^3/uL (0.2-0.9) 07/29/24 12: Eos # (Auto) 0.1 10^3/uL (0.0-0.8) 07/29/24 12: Baso # (Auto) 0.0 10^3/uL (0.0-0.1) 07/29/24 12: Nucleated RBC % (auto) 0 % 07/29/24 12: Nucleated RBCs # 0.0 /100WBC 07/29/24 12:22 Sodium 138 mmol/L (136-145) 07/29/24 12:22 Potassium 4.1 mmol/L (3.5-5.1) 07/29/24 12:22 Chloride 104 mmol/L (98-107) 07/29/24 12:22 Carbon Dioxide 22 mmol/L (22-29) 07/29/24 12:22 Anion Gap 16.1 (5-19) 07/29/24 12:22 BUN 21 mg/dL (8-23) 07/29/24 12:22 Creatinine 0.9 mg/dL (0.5-0.9) 07/29/24 12:22 GFR Calculation 63.2 mL/min (90-130) L 07/29/24 12:22 Glucose 130 mg/dL (65-115) H 07/29/24 12:22 POC Glucose 137 mg/dL (70-110) H 07/29/24 12:01 Calculated Osmolality 291 mOsm/kg (285-295) 07/29/24 12:22 Calcium 9.5 mg/dL (8.5-10.5) 07/29/24 12:22 Total Bilirubin 0.4 mg/dL (0.15-1.2) 07/29/24 12:22 AST 14 U/L (0-32) 07/29/24 12:22 ALT 15 U/L (0-33) 07/29/24 12:22 Alkaline Phosphatase 113 U/L (35-105) H 07/29/24 12:22 Total Protein 7.7 g/dL (6.6-8.7) 07/29/24 12:22 Albumin 4.2 g/dL (3.5-5.2) 07/29/24 12:22 Globulin 3.5 g/dL (1.3-4.6) 07/29/24 12:22 All radiology interpretation(s) finalized by discharge EKG Data EKG 1: I personally reviewed and interpreted this EKG as follows: EKG interpretation date: 07/29/24 EKG interpretation time: 12:07 Interpretation: sinus tach hr 106 qtc 378 qts 378 Discharge Plan Discharge Patient Disposition: Home Clinical Impression: Brain TIA Condition: Stable Prescriptions: New aspirin 81 mg capsule 81 mg PO DAILY Qty: 30 0RF atorvastatin [Lipitor] 80 mg tablet 80 mg PO DAILY Qty: 30 0RF No Action cyclobenzaprine 5 mg tablet 5 mg PO TID PRN (Reason: muscle spasm) Qty: 20 0RF albuterol sulfate 90 mcg/actuation HFA aerosol inhaler 2 puff inhalation Q4H PRN (Reason: shortness of breath or wheezing) Qty: 8.5 0RF benzonatate 200 mg capsule 200 mg PO TID PRN (Reason: cough) Qty: 20 0RF bethanechol chloride 25 mg tablet 25 mg PO TID Qty: 90 1RF loratadine 10 mg tablet 10 mg PO DAILY temazepam 15 mg capsule 15 mg PO BEDTIME PRN (Reason: sleep) diclofenac sodium 75 mg tablet,delayed release (DR/EC) 75 mg PO Q12H PRN (Reason: pain) Qty: 20 0RF Discharge Orders: Discharge ED (Routine); Ordered 07/29/24 Ordered By: Calos Peña Referrals: Althea Luna DO [Primary Care Provider, [employer]] Discharge Diet: Advance as tolerated Discharge Activity: Resume usual activity Patient Instructions: Transient Ischemic Attack (ED) Print Language: Irish Coding Level of Care Code ED Lockstitch Zipper Setter for Gerri Tolbert
[2024-07-29 11:59] VITALS: BP 145/86; PULSE 105; RESP 18; TEMP 36.7; O2SAT 93
[2024-07-29 12:03] LABS: Glucose Point of Care 137 mg/dL (70-110)
--- NOTE | 2024-07-29 12:07 | ECG_ITS ---
[facility] Test Date: 2024-07-29 Pat Name: Breonna Csatañeda Department: Room: Gender: Female Senior Solutions Consultant: : 1960 Requested By: Li Morales Order Number: [id number] Kelvin MD: Marjorie Kunz M.D. Measurements Intervals [place] Rate: 106 P: 66 AR: 150 QRS: 7 QRSD: 85 T: 45 QT: 316 QTc: 421 Interpretive Statements SINUS TACHYCARDIA POSSIBLE LEFT ATRIAL ENLARGEMENT [-0.1mV P-WAVE IN V1/V2] ABNORMAL RHYTHM ECG No previous ECG available for comparison Electronically Signed On 07-29-2024 21:29:42 CDT by Marjorie Kunz M.D. [email or web address]
[2024-07-29 12:26] LABS: Basophils % 0.4 %; Eosinophils # 0.1 10^3/uL (0.0-0.8); Eosinophils % 0.7 %; Hematocrit 50.6 % (36-47); Lymphocytes # 1.1 10^3/uL (0.8-4.8); Lymphocytes % 11.5 %; Mean Corpuscular HGB Conc 30.2 g/dL (30-55); Mean Corpuscular Hemoglobin 28.9 pg (27-33); Mean Corpuscular Volume 95.5 fl (85-98); Mean Platelet Volume 10.5 fL (7.4-10.4); Monocytes # 0.3 10^3/uL (0.2-0.9); Monocytes % 3.4 %; Neutrophils # 7.91 10^3/uL (1.8-7.7); Neutrophils % 83.8 %; Nucleated Red Blood Cells % 0 %; Platelet Count 213 10^3/cmm (157-399); Red Cell Distribution Width 13.9 % (12.1-15.1); White Blood Count 9.45 10^3/uL (3.29-11.43)
[2024-07-29 12:41] LABS: Alanine Aminotransferase 15 U/L (0-33); Albumin Level 4.2 g/dL (3.5-5.2); Alkaline Phosphatase 113 U/L (35-105); Anion Gap 16.1 (5-19); Aspartate Amino Transferase 14 U/L (0-32); Blood Urea Nitrogen 21 mg/dL (8-23); Calcium 9.5 mg/dL (8.5-10.5); Carbon Dioxide 22 mmol/L (22-29); Chloride 104 mmol/L (98-107); Globulin 3.5 g/dL (1.3-4.6); Glomerular Filtration Rate 63.2 mL/min (90-130); Glucose 130 mg/dL (65-115); Osmolality Calculated 291 mOsm/kg (285-295); Potassium 4.1 mmol/L (3.5-5.1); Sodium 138 mmol/L (136-145); Total Bilirubin 0.4 mg/dL (0.15-1.2); Total Protein 7.7 g/dL (6.6-8.7)
[2024-07-29] MEDS: aspirin 81 mg Chew Tablet 324 MG PO (13:00)
[2024-07-29 13:06] VITALS: BP 142/76; PULSE 98; O2SAT 94
[2024-07-29 13:19] LABS: Bilirubin Urine Negative (Negative); Blood Urine Negative (Negative); Glucose Urine UA Negative (Normal); Ketones Urine Trace (Negative); Leukocyte Esterase Urine Negative (Negative); Nitrate Urine Negative (Negative); Protein Urine Negative (Negative); Specific Gravity, Urine 1.027 (1.005-1.030); Urine Appearance Clear (CLEAR); Urine Color Yellow (Yellow)
[2024-07-29 13:24] LABS: Add Urine Microscopic? YES; Bacteria Urine 1+ /hpf; Hyaline Casts Urine 1.21 /lpf; RBC Urine 0-2 /hpf (0-2); WBC Urine 0-5 /hpf (0-5)
[2024-07-29 13:25] LABS: Amphetamines Screen Urine Negative (Negative); Barbiturates Screen Urine Negative (Negative); Benzodiazepines Screen Urine Positive (Negative); Cocaine Screen Urine Negative (Negative); Opiate Screen Urine Negative (Negative); PCP Screen Urine Negative (Negative); THC Screen Urine Negative (Negative)
--- NOTE | 2024-07-30 07:31 | DCPLANNER ---
messaged neuro for er f/u
== END 2024-07-29 13:08 | disposition home or self-care (01) ==
PROVIDERS: Emergency Provider Emergency Medicine; PCP Family Medicine
DX: G45.9 Transient cerebral ischemic attack, unspecified (principal)
CPT/HCPCS: 36415; 36416; 70450; 80053; 80306; 81001; 82962; 85025; 93005; 99284; J9999

== ENCOUNTER 2024-07-31 12:52 | Observation (INO) | payer MEDICAID, SELFPAY ==
[2024-07-31] VITALS (7 sets, daily range): BP systolic 102–147; BP diastolic 64–94; PULSE 91–108; RESP 16; TEMP 36.3–36.6; O2SAT 90–96; BMI 36.2
--- NOTE | 2024-07-31 13:08 | CT_ITS ---
WS: [id number] CTA HEAD AND NECK TECHNIQUE: Contrast enhanced CTA of the head and neck with coronal and sagittal reformatted images and maximum intensity projection (MIP) images. NASCET criteria utilized. CLINICAL INFORMATION: cva COMPARISON: None. DLP: 1506.[address] scans at [facility] use at least one of these dose optimization techniques: automated exposure control; mA and/or kV adjustment per patient size (includes targeted exams where dose is matched to clinical indication); or iterative reconstruction. FINDINGS: RIGHT: RIGHT common carotid artery is patent. No significant RIGHT ICA stenosis. RIGHT ICA is patent to the skull base. LEFT: LEFT common carotid artery is patent. No significant LEFT ICA stenosis. LEFT ICA is patent to the skull base. INTRACRANIAL CTA: Codominant vertebral arteries bilaterally. Basilar artery is patent. Normal vascularity to the CAN WASHER territory bilaterally. Both ICAs are patent at the skull base. Normal vascularity to the ELI territory. Small LEFT A1 segment. Normal vascularity to the MCA territories bilaterally. No proximal flow-limiting stenosis. Paranasal sinusitis. Proximal subclavian arteries are patent. Multinodular thyroid. Small hazy opacity RIGHT upper lobe. CT/CT angio headneck* [id number] IMPRESSION: 1. No significant cervical ICA stenosis. 2. No proximal flow-limiting intracranial stenosis.
--- NOTE | 2024-07-31 13:08 | CT_ITS ---
WS: [id number] CT HEAD TECHNIQUE: Noncontrast CT of the head obtained from the skullbase to the vertex. CLINICAL INFORMATION: Symptoms of acute stroke COMPARISON: 07/29/2024 DLP: [address] scans at [facility] use at least one of these dose optimization techniques: automated exposure control; mA and/or kV adjustment per patient size (includes targeted exams where dose is matched to clinical indication); or iterative reconstruction. FINDINGS: No evidence of intracranial hemorrhage or mass effect. Ventricular system and basal cisterns are patent. Moderate small vessel changes with moderate parenchymal volume loss. No extra-axial fluid collections. No evidence of mass or mass effect. Possible infarct in the RIGHT morrissey radiata extending into the basal ganglia is more conspicuous today compared to the prior recent study suspicious for small subacute infarct. Air-fluid levels in the paranasal sinuses compatible with sinusitis. CT/CT head thrombolytic 25065 IMPRESSION: 1. No evidence of intracranial hemorrhage or mass effect. 2. Possible small subacute infarct in the RIGHT morrissey radiata extending into the basal ganglia is more conspicuous today. This could be followed up with MRI if indicated. 3. Maxillary and ethmoid sinusitis Notified Li Morales MD at 07/31/2024 1:30 PM.
--- NOTE | 2024-07-31 13:08 | ECG_ITS ---
[facility] Test Date: 2024-07-31 Pat Name: Breonna Castañeda Department: Room: Gender: Female Media Analytics Manager: : 1960 Requested By: Li Morales Order Number: [id number] Kelvin MD: Marjorie Kunz M.D. Measurements Intervals [place] Rate: 100 P: 65 DC: 156 QRS: 11 QRSD: 85 T: 42 QT: 320 QTc: 413 Interpretive Statements SINUS TACHYCARDIA ABNORMAL RHYTHM ECG Compared to ECG 07/29/2024 12:07:23 No significant changes Electronically Signed On 08-02-2024 06:15:19 CDT by Marjorie Kunz M.D. [id number]
--- NOTE | 2024-07-31 13:13 | ED_ITS ---
HPI - Neuro Symptoms/Deficit 2 General: Chief Complaint: Neuro Symptoms/Deficit Stated Complaint: left are numbness post mini stroke Time Seen by Provider: 07/31/24 13:04 Source: patient Mode of arrival: ambulatory Limitations: no limitations History of Present Illness: 64-year-old female seen here on Tuesday w ith a TIA she states that her symptoms had completely resolved but then yesterday afternoon she started having some slurred speech trouble swallowing and today she been having left-sided weakness. She denies any headache. Her last known normal was yesterday. Denies any worse improved factors. Associated symptoms: Deny chest pain, headache(s), nausea or vomiting Related Data Home Medications ?Medication ?Instructions ?Recorded ?Confirmed loratadine 10 mg tablet 10 mg PO DAILY 10/06/2309/15 temazepam 15 mg capsule 15 mg PO BEDTIME PRN sleep 0 10/06/23 10/06/23 Previous Rx's ?Medication ?Instructions ?Recorded albuterol sulfate 90 mcg/actuation 2 puff inhalation Q 4H PRN 01/01/23 aerosol inhaler shortness of breath or wheez ing #8.5 grams benzonatate 200 mg capsule 200 mg PO TID PRN cough #20 caps 01/01/23 bethanechol chloride 25 mg tablet 25 mg PO TID #90 tab s 03/18/23 cyclobenzaprine 5 mg tablet 5 mg PO TID PRN muscle spa sm #20 05/02/23 tabs diclofenac sodium 75 mg 75 mg PO Q12H PRN pain #20 t abs 10/06/23 tablet,delayed release aspirin 81 mg capsule 81 mg PO DAILY #30 caps 07/15 07/08 atorvastatin 80 mg tablet (Lipitor) 80 mg PO DAILY #30 tabs 07/29/24 Allergies Allergy/AdvReac Type Severity Reaction Status Date / Time amoxicillin Allergy rash Verified 05/02/23 13:48 Review of Systems 2 Const: Denies: fever(s), chills, body aches or change in appetite Eyes: Denies: blurry vision or eye discomfort ENMT: Denies: throat pain or dental pain Card: Denies: chest pain Resp: Denies: dyspnea GI: Denies: abdominal pain, nausea, vomiting or diarrhea Musc: Denies: neck pain or back pain Skin/Breast: Denies: rash Neuro: Reports: weakness in extremities and Slurred speech present; Denies: headache(s) PFSH ED 2 PFSH: Family History Father Hypertension Mother Dementia Diabetes Denies family history of Colon cancer Ovarian cancer Heart disease Breast cancer Uterine cancer Thyroid disease Stroke NIH stroke score 2 NIHSS: Level Of Consciousness - 1a: 0 Level Of Consciousness Questions - 1b: Both Correct Level Of Consciousness Commands - 1c: Both Correct Best Gaze - 2: Normal Visual Vega - 3: No Visual Loss Facial Palsy - 4: N ormal Motor Arm Right - 5: No Drift Motor Arm Left - 5: Drift Motor Leg Right - 6: No Drift Motor Leg Left - 6: Drift Limb Ataxia - 7: Absent S ensory - 8: Normal Best Language - 9: No Aphasia Dysarthia - 10: Normal Extinction And Inattention - 11: 0 Score: Total Score: 2 Physical Exam 2 Const: COMMON NORMALS: patient oriented x3 HENMT: COMMON NORMALS: normocephalic and atraumatic HEAD & SCALP: n ormocephalic and atraumatic Eye: COMMON NORMALS: conjunctivae normal CONJUNCTIVA: Yes conjunctivae normal Neck/C-Spine: COMMON NORMALS: full ROM and supple Chest: COMMONS NORMALS: normal inspection of the chest Resp: COMMON NORMALS: normal respiratory effort, No retractions, No use of accessory muscles and clear to auscultation bilaterally AUSCULTATION: clear to auscultation bilaterally Cardio: COMMON NORMALS: regular rate, regular rhythm and No murmurs present (Cardio) RATE: regular rate RHYTHM: regular rhythm Extremity: COMMON NORMALS: normal to inspection and full ROM Neuro: COMMON NORMALS: patient oriented x3 CRANIAL NERVES: Yes CN normal except as noted SPEECH: speech normal Psych: COMMON NORMALS: mental status grossly normal, Normal thought process present and cooperative THOUGHT PROCESS: Normal thought process present Skin: COMMON NORMALS: no rashes or lesions noted and no wounds GENERAL SKIN EXAM: no rashes or lesions noted Course 2 Vital Signs: Vital signs: Vital Signs Temperature 97.4 F L 07/31/24 13:09 Pulse Rate 108 H 07/31/24 13:09 Respiratory Rate 16 07/31/24 13:09 Blood Pressure 128/84 07/31/24 13:09 Pulse Oximetry 93 07/31/24 13:09 Oxygen Delivery Me thod Room Air 06/17/25 13:09 MDM - Neuro Symptoms/Deficit Medical Decision Making Patient presents here with possible CVA. CTA showed no large clot CT showed possible small subacute infarct she is out of treatment window for TNK spoke to the hospitalist will admit at this time Medical Records I reviewed the patient's medical records. Lab Data I reviewed the patient's lab results. 07/31/24 13:10 07/31/24 13:[address] 07/31/24 13:08 IMPRESSION: 1. No evidence of intracranial hemorrhage or mass effect. 2. Possible small subacute infarct in the RIGHT morrissey radiata extending into the basal ganglia is more conspicuous today. This could be followed up with MRI if indicated. 3. Maxillary and ethmoid sinusitis Notified Li Morales MD at 07/31/2024 1:30 PM. Head/Neck CTA 07/31/24 13:08 IMPRESSION: 1. No significant cervical ICA stenosis. 2. No proximal flow-limiting intracranial stenosis. Laboratory Results WBC 8.58 10^3/uL (3.29-11.43) 07/31/24 13:10 RBC 5.02 10^6/uL (3.85-5.65) 07/31/24 13:10 Hgb 14.70 g/dL (11.27-16.99) 07/31/24 13:10 Hct 46.8 % (36-47) 07/31/24 13:10 MCV 93.2 fl (85-98) 07/31/24 13:10 MCH 29.3 pg (27-33) 07/31/24 13:10 MCHC 31.4 g/dL (30-55) 07/31/24 13:10 RDW 14.0 % (12.1-15.1) 07/31/24 13:10 Plt Count 260 10^3/cmm (157-399) 07/31/24 13:10 MPV 9.9 fL (7.4-10.4) 07/31/24 13:10 Neut % (Auto) 70.4 % 07/31/24 13:10 Lymph % (Auto) 21.8 % 07/31/24 13:10 [place] % (Auto) 5.8 % 07/31/24 13:10 Eos % (Auto) 1.3 % 07/31/24 13:10 Baso % (Auto) 0.5 % 07/31/24 13:10 Neut # (Auto) 6.04 10^3/uL (1.8-7.7) 07/31/24 13:10 Lymph # (Auto) 1.9 10^3/uL (0.8-4.8) 07/31/24 13:10 [place] # (Auto) 0.5 10^3/uL (0.2-0.9) 07/31/24 13:10 Eos # (Auto) 0.1 10^3/uL (0.0-0.8) 07/31/24 13:10 Baso # (Auto) 0.0 10^3/uL (0.0-0.1) 07/31/24 13:10 Nucleated RBC % (auto) 0 % 07/31/24 13:10 Nucleated RBCs # 0.0 /100WBC 07/31/24 13:10 PT 13.80 SECONDS (12.1-14.9) 07/31/24 13:10 INR 0.99 (0.8-1.2) 07/31/24 13:10 APTT 31.4 SECONDS (23.9-36.7) 07/31/24 13:10 Sodium 139 mmol/L (136-145) 07/31/24 13:10 Chloride 104 mmol/L (98-107) 07/31/24 13:10 Carbon Dioxide 23 mmol/L (22-29) 07/31/24 13:10 BUN 17 mg/dL (8-23) 07/31/24 13:10 Creatinine 0.9 mg/dL (0.5-0.9) 07/31/24 13:10 Glucose 96 mg/dL (65-115) 07/31/24 13:10 POC Glucose 94 mg/dL (70-110) 07/31/24 13:43 Calculated Osmolality 289 mOsm/kg (285-295) 07/31/24 13:10 Calcium 9.7 mg/dL (8.5-10.5) 07/31/24 13:10 Total Bilirubin 0.5 mg/dL (0.15-1.2) 07/31/24 13:10 AST 18 U/L (0-32) 07/31/24 13:10 ALT 16 U/L (0-33) 07/31/24 13:10 Total Protein 7.4 g/dL (6.6-8.7) 07/31/24 13:10 Albumin 4.2 g/dL (3.5-5.2) 07/31/24 13:10 Globulin 3.2 g/dL (1.3-4.6) 07/31/24 13:10 Urine Color Yellow (Yellow) 07/31/24 13:20 Urine Appearance Clear (CLEAR) 07/31/24 13:20 Urine pH 5.5 (5-7) 07/31/24 13:20 Ur Specific [place] 1.015 (1.005-1.030) 07/31/24 13:20 Urine Protein Negative (Negative) 07/31/24 13:20 Urine Glucose (UA) Negative (Normal) 07/31/24 13:20 Urine Ketones Negative (Negative) 07/31/24 13:20 Urine Blood Negative (Negative) 07/31/24 13:20 Urine Nitrate Negative (Negative) 07/31/24 13:20 Urine Bilirubin Negative (Negative) 07/31/24 13:20 Urine Urobilinogen 0.2 mg/dL (Negative) 07/31/24 13:20 Ur Leukocyte Esterase Negative (Negative) 07/31/24 13:20 Urine RBC 0-2 /hpf (0-2) 07/31/24 13:20 Urine WBC 0-5 /hpf (0-5) 07/31/24 13:20 Ur Squamous Epith Cells 0-5 /hpf (0-5) 07/31/24 13:20 Amorphous Sediment Not Reportable 07/31/24 13:20 Urine Bacteria None seen /hpf (NONE) 07/31/24 13:20 Hyaline Casts 0.81 /lpf 07/31/24 13:20 Urine Opiates Screen Negative ng/mL (Negative) 07/31/24 13:20 Ur Barbiturates Screen Negative ng/mL (Negative) 07/31/24 13:20 Ur Phencyclidine Scrn Negative ng/mL (Negative) 07/31/24 13:20 Ur Amphetamines Screen Negative ng/mL (Negative) 07/31/24 13:20 U Benzodiazepines Scrn Positive ng/mL (Negative) H 07/31/24 13:20 Urine Cocaine Screen Negative ng/mL (Negative) 07/31/24 13:20 U Marijuana (THC) Screen Negative ng/mL (Negative) 07/31/24 13:20 All radiology interpretation(s) finalized by discharge Discharge Plan Discharge Patient Disposition: Admitted As Inpatient Clinical Impression: Cerebrovascular accident Condition: Stable Coding Level of Care Code ED Outpatient Dietitian for Gerri Tolbert
[2024-07-31] MEDS: iohexol 350 mg/mL 500 mL Btl (per mL) IV (13:22)
[2024-07-31 13:33] LABS: Basophils % 0.5 %; Eosinophils # 0.1 10^3/uL (0.0-0.8); Eosinophils % 1.3 %; Hematocrit 46.8 % (36-47); Lymphocytes # 1.9 10^3/uL (0.8-4.8); Lymphocytes % 21.8 %; Mean Corpuscular HGB Conc 31.4 g/dL (30-55); Mean Corpuscular Hemoglobin 29.3 pg (27-33); Mean Corpuscular Volume 93.2 fl (85-98); Mean Platelet Volume 9.9 fL (7.4-10.4); Monocytes # 0.5 10^3/uL (0.2-0.9); Monocytes % 5.8 %; Neutrophils # 6.04 10^3/uL (1.8-7.7); Neutrophils % 70.4 %; Nucleated Red Blood Cells % 0 %; Platelet Count 260 10^3/cmm (157-399); Red Blood Count 5.02 10^6/uL (3.85-5.65); White Blood Count 8.58 10^3/uL (3.29-11.43)
[2024-07-31 13:46] LABS: Glucose Point of Care 94 mg/dL (70-110)
[2024-07-31 13:48] LABS: Bilirubin Urine Negative (Negative); Blood Urine Negative (Negative); Glucose Urine UA Negative (Normal); Ketones Urine Negative (Negative); Leukocyte Esterase Urine Negative (Negative); Nitrate Urine Negative (Negative); Protein Urine Negative (Negative); Specific Gravity, Urine 1.015 (1.005-1.030); Urine Appearance Clear (CLEAR); Urine Color Yellow (Yellow); Urobilinogen Urine 0.2 mg/dL (Negative); pH Urine 5.5 (5-7)
[2024-07-31 13:49] LABS: INR 0.99 (0.8-1.2)
[2024-07-31 13:50] LABS: Partial Thromboplastin Time 31.4 SECONDS (23.9-36.7)
[2024-07-31 13:53] LABS: Add Urine Microscopic? YES; Bacteria Urine None Seen /hpf; Hyaline Casts Urine 0.81 /lpf; RBC Urine 0-2 /hpf (0-2); Squamous Epithelial Cell Urine 0-5 /hpf (0-5); WBC Urine 0-5 /hpf (0-5)
[2024-07-31 13:55] LABS: Alanine Aminotransferase 16 U/L (0-33); Albumin Level 4.2 g/dL (3.5-5.2); Alkaline Phosphatase 108 U/L (35-105); Aspartate Amino Transferase 18 U/L (0-32); Blood Urea Nitrogen 17 mg/dL (8-23); Calcium 9.7 mg/dL (8.5-10.5); Carbon Dioxide 23 mmol/L (22-29); Chloride 104 mmol/L (98-107); Creatinine Clr Calc Pharmacy 63.3479; Globulin 3.2 g/dL (1.3-4.6); Glomerular Filtration Rate 63.2 mL/min (90-130); Glucose 96 mg/dL (65-115); Osmolality Calculated 289 mOsm/kg (285-295); Sodium 139 mmol/L (136-145); Total Bilirubin 0.5 mg/dL (0.15-1.2); Total Protein 7.4 g/dL (6.6-8.7)
[2024-07-31 13:57] LABS: Amphetamines Screen Urine Negative (Negative); Barbiturates Screen Urine Negative (Negative); Benzodiazepines Screen Urine Positive (Negative); Cocaine Screen Urine Negative (Negative); Opiate Screen Urine Negative (Negative); PCP Screen Urine Negative (Negative); THC Screen Urine Negative (Negative)
[2024-07-31 14:09] LABS: Alcohol Level < 10 mg/dL (0-10)
[2024-07-31] MEDS: aspirin 81 mg Chew Tablet 324 MG PO (14:09)
[2024-07-31 14:10] LABS: Anion Gap 16.4 (5-19); Potassium 4.4 mmol/L (3.5-5.1)
--- NOTE | 2024-07-31 14:49 | MRR_ITS ---
PROCEDURE INFORMATION: Exam: MR Head Without Contrast Exam date and time: 07/31/2024 5:59 PM Age: 64 years old Clinical indication: Pain; Headache; Additional info: R/O stroke, right morrissey radiata per CT head today TECHNIQUE: Imaging protocol: Magnetic resonance imaging of the head without contrast. COMPARISON: CT angio headneck* [id number] 07/31/2024 1:10 PM FINDINGS: Brain: There is an irregular focus of acute ischemia involving the right insular cortex extending into the right centrum semiovale. No other foci of acute ischemia can be seen. There are multiple foci of chronic ischemic change throughout the periventricular white matter bilaterally. Cerebral ventricles: Normal. No ventriculomegaly. Bones: Unremarkable. Paranasal sinuses: There is evidence of bilateral maxillary sinusitis. Mastoid air cells: Normal as visualized. No mastoid effusion. Orbital cavities: Unremarkable. Soft tissues: Unremarkable. MR/MR head wo con* [id number] IMPRESSION: 1. Acute infarct involving the right insular cortex and right centrum semiovale 2. Mild chronic ischemic changes also noted
--- NOTE | 2024-07-31 15:32 | USCV_ITS ---
Garry Breonna Age: 64 Gender: F : 1960 Exam Date: 07/31/2024 18:34 Ordering Phys: David Crandall DO Technologist: ZENOBIA Exam Location: [facility] – [place] Indication: slurred speech CVA BP: 113 / 71 HR: 89 Rhythm: Sinus Technical Quality: Adequate MEASUREMENTS (Male / Female) Normal Values 2D ECHO LV Diastolic Diameter PLAX 3.9 cm 4.2 - 5.9 / 3.9 - 5.3 cm IVS Diastolic Thickness 1.3 cm 0.6 - 1.0 / 0.6 - 0.9 cm IVS Systolic Thickness 2.5 cm LVPW Diastolic Thickness 1.2 cm 0.6 - 1.0 / 0.6 - 0.9 cm LVPW Systolic Thickness 1.3 cm LVOT Diameter 2.0 cm LV Ejection Fraction 2D Teich 69.7 % LV Ejection Fraction MOD 4C 59.8 % LV Ejection Fraction MOD 2C 63.9 % LV Ejection Fraction 2C AL 53.6 % LA Diameter 2.9 cm Aorta at Sinotubular Diameter 2.6 cm IVC Diameter 1.1 cm M-MODE LA Ao Ratio MM 1.1 AV Cusp Separation MM 1.8 cm DOPPLER AV Peak Velocity 117.0 cm/s LVOT Peak Velocity 107.0 cm/s AV Area Cont Eq vti 3.0 cm squared AV Area Cont Eq pk 2.7 cm squared MV Peak Velocity 108.0 cm/s MV Area PHT 2.9 cm squared Mitral E to A Ratio 0.7 TV Peak E Velocity 56.0 cm/s PV Peak Velocity 101.0 cm/s FINDINGS Left Ventricle Normal LV size ejection fraction 60%.no regional wall motion abnormalities. Mild left ventricular hypertrophy. Grade I/IV diastolic dysfunction (abnormal relaxation filling pattern), normal to mildly elevated filling pressures. Right Ventricle The right ventricle is normal in size and function. Right Atrium The right atrium is normal in size. Left Atrium There is an ovoid heterogenous, mobile mass measuring 2.5 x 1.58 cm in size, attached to the lower part of the interatrial septum jutting into the mitral inflow Mitral Valve No gross abnormalities noted Aortic Valve No gross abnormalities noted Tricuspid Valve No gross abnormalities noted Pulmonic Valve No gross abnormalities no Pericardium Normal pericardium without effusion. Aorta Normal aortic annulus size. IVC The inferior vena cava appears normal. CONCLUSIONS There is an ovoid heterogenous, mobile mass measuring 2.5 x 1.58 cm in size, attached to the lower part of the interatrial septum jutting into the mitral inflow. 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 Mild left ventricular hypertrophy. Grade I/IV diastolic dysfunction (abnormal relaxation filling pattern), normal to mildly elevated filling pressures. No significant valvular abnormalities Normal cardiac chamber sizes. No pericardial effusion No similar previous studies are available for comparison Dr Marjorie Kunz MD [facility] (Electronically Signed) Final Date: 01 August 2024 11:09 Amended: 01 August 2024 20:27 C
--- NOTE | 2024-07-31 15:33 | PM.HP ---
Providers/Chief Complaint Admitting Physician: David Crandall DO Primary Care Provider: Althea Luna DO Chief Complaint: left are numbness post mini stroke History of Present Illness Breonna Castañeda is a 64 year old female presented to the emergency department 2 days ago with slurred speech and left arm weakness. CT of head was negative for bleed. She declined admission that was recommended. Reportedly her symptoms were gone when EMS arrived however the ER report documents some weakness. Yesterday and today the patient continued to have some slurred speech per the patient and family. And she again was having trouble carrying her coffee. With family encouragement she decided come back. Repeat CT of head shows small infarct in the right morrissey radiata. She agrees for admission and workup. Review of Systems Const: Reports: malaise; Denies: fever(s) or chills Eyes: Denies: change in vision ENMT: Denies: throat pain or nasal congestion Card: Denies: chest pain or palpitations Resp: Denies: dyspnea or productive cough GI: Denies: abdominal pain, nausea, vomiting or change in stool character : Denies: dysuria Musc: Denies: back pain or extremity pain Skin/Breast: Denies: rash or lesions Neuro: Reports: numbness in extremities (Left arm) and weakness in extremities (Left arm); Denies: headache(s) or dizziness Psych: Denies: anxiety or depression Hakeem/Lymph: Denies: easy bruising or easy bleeding Medications/Allergies Home Medications ?Medication ?Instructions ?Recorded ?Confirmed ?Last Taken ?Type loratadine 10 mg tablet 10 mg PO DAILY 10/06/23 07/31/24 07/31/24 History temazepam 15 mg capsule 15 mg PO BEDTIME PRN sleep 10/06/23 07/31/24 Unknown History atorvastatin 80 mg tablet (Lipitor) 80 mg PO DAILY #30 tabs 07/29/24 07/31/24 07/31/24 Rx aspirin 81 mg tablet,delayed 81 mg PO DAILY 07/31/24 07/31/24 07/31/24 History release tamsulosin 0.4 mg capsule 0.4 mg PO DAILY 07/31/24 07/31/24 07/30/24 History Allergies Allergy/AdvReac Type Severity Reaction Status Date / Time amoxicillin Allergy rash Verified 05/02/23 13:48 PFSH Acute PFSH: Family History Father Hypertension Mother Dementia Diabetes Denies family history of Colon cancer Ovarian cancer Heart disease Breast cancer Uterine cancer Thyroid disease Stroke Vitals/I&O/Wt Last Vital Signs Temp 97.4 F L 07/31/24 13:09 Pulse 91 07/31/24 15:24 Resp 16 07/31/24 15:24 BP 113/71 07/31/24 15:24 Pulse Ox 90 07/31/24 15:24 O2 Del Method Room Air 07/31/24 15:24 Weight last 48 hrs Weight 84.141 kg Weight 81.647 kg Physical Exam Narrative: Patient appears older than her stated age of 64. Patient is in no acute distress at time of exam Neuro: NIH is 3. Expressive aphasia noted by family and patient not myself. Left arm with minimal drift and sensory changes HEENT head is normocephalic atraumatic pupils equal round and reactive to light and accommodation extraocular muscles are intact there is no scleral icterus mucous membranes are somewhat dry dark or coloration probably from smoking Neck is supple no JVD carotid bruits or lymphadenopathy Heart is regular normal S1-S2 without murmurs clicks gallops or rubs Lungs diffuse inspiratory and expiratory wheezing with poor aeration Abdomen obese soft nontender nondistended positive bowel sounds no hepatosplenomegaly Extremities no clubbing cyanosis or edema Skin there is a burn on her left hand with a layer of skin exposed around the thumb area. She has a bronze complexion. Otherwise no lesions or rashes Psych mood and affect are appropriate for illness Back no CVA tenderness no kyphosis or scoliosis Data 07/31/24 13:10 07/31/24 13:10 CT Head: My impression: My impression is that of moderate small vessel changes and overall volume loss in in excess of what is normal in a 64-year-old. Radiologist's impression: IMPRESSION: 1. No evidence of intracranial hemorrhage or mass effect. 2. Possible small subacute infarct in the RIGHT morrissey radiata extending into the basal ganglia is more conspicuous today. This could be followed up with MRI if indicated. 3. Maxillary and ethmoid sinusitis EKG 1: My Interpretation: Sinus tach no atrial fibrillation EKG computer-generated impression: SINUS TACHYCARDIA ABNORMAL RHYTHM ECG A&P Assessment and plan (1) Cerebrovascular accident: Seen on CAT scan today. Will order MRI brain. CT head and neck shows no occlusions therefore carotid Dopplers not necessary Echo ordered Check lipids TSH and hemoglobin A1c Patient does not appear to have hypertension. In fact she is in the normal range. I believe she would do better with an elevated blood pressure. And I am surprised her cardiovascular system is not reacting this way in light of a stroke. Will hydrate with fluids. Of note she takes tamsulosin which may be decreasing her blood pressure. Consideration for discontinuation or changing to every afternoon (2) Wheezing: Wheezing from cigarette usage Will order nebulizers as needed (3) Urinary retention with incomplete bladder emptying: As above (4) Tobacco abuse: Counseled to quit. She says she is not ready to quit. I explained how tobacco abuse is causing her stroke and this is the one risk factor that she can modify. She is not interested in quitting at this time Plan MedSur admission with telemetry Neurochecks Permissive hypertension with IV fluids MRI brain Echo Check lipids TSH and hemoglobin A1c PT OT and speech therapy PDMP PDMP Reviewed: Not Reviewed Attestations Medical Necessity Statement*: Patient requires a 2 midnight stay for the evaluation and treatment of acute stroke Coding Level of Care Code Acute Code for [facility] Fwd Diagnoses Cerebrovascular accident I63.9 Wheezing R06.2 Urinary retention with incomplete bladder emptying R33.9 Tobacco abuse Z72.0
[2024-07-31] MEDS: enoxaparin 30 mg/0.3 mL Syringe SUBCUT (15:45)
[2024-07-31] MEDS: sodium chloride 0.9% 1,000 ML 125 ML IV (15:46)
[2024-07-31] MEDS: silver sulfadiazine cream 1% 50 gm 1 APPLIC TOPICAL (18:26)
[2024-07-31] MEDS: temazepam 15 mg Capsule PO (20:38)
[2024-08-01] VITALS (9 sets, daily range): BP systolic 98–127; BP diastolic 56–75; PULSE 71–87; RESP 16–20; TEMP 36.3–36.8; O2SAT 92–97
[2024-08-01] MEDS: sodium chloride 0.9% 1,000 ML 125 ML IV ×3 (05:16→21:42)
[2024-08-01 05:38] LABS: Estmated Average Glucose 126
[2024-08-01 05:47] LABS: Chol HDL Ratio 2.89 mg/dL (0.0-4.40); Cholesterol 104 mg/dL (0-200); HDL Cholesterol 36 mg/dL (60-100); LDL Cholesterol Calculated 53 mg/dL (50-129); LDL HDL Ratio 1.47 RATIO (0.00-3.22); Triglycerides 75 mg/dL (0-150)
[2024-08-01] MEDS: atorvastatin 40 mg Tablet 80 MG PO (09:42)
[2024-08-01] MEDS: aspirin 81 mg EC Tablet PO (09:42)
--- NOTE | 2024-08-01 10:38 | PC.CHAP ---
Pastoral Care Encounter/Spiritual Assessment Type of Contact [] Declined senior gis analyst visit [] Patient/Family/Request visit [] Outpatient visit [] Follow-up visit [] Physician referral [] Code/Alert [x] Routine visit [] Staff referral [] Actively dying [] Patient sleeping [] Family support [] [] Out of room [] Palliative care [] [] Receiving care in room [] Pre-surgical visit [] Trauma [] Long length of stay [] ICU visit [] Other: Relational/Emotional Strength [x] Patient feels connected with others/family/visitors/staff [] Distress [] Loneliness/isolation [] Abandonment Spirituality of Patient [x] Person of Helga [] Attends Adventist of their Helga [x] Believes in Prayer [] Reads Bible or Pentecostalism materials [] There are Spiritual issues to be addressed Paper Cleaner Interventions [x] Prayer [x] Active listening [] Non-anxious presence [x] Spiritual/emotional support [] Crisis/trauma care [] Spiritual counseling [] Bereavement support [] Provided bereavement packet [] Provided Bible/devotional materials [] Provided toy/stuffed animal, coloring book to patient or family member [] Provided Communion [] Anointing/[place] [] Salvation [x] Completed spiritual assessment [] Other: Impact on Illness or Injury [] Angry [] Fearful [] Anxious [] Often cries [] Exhaustion [] Unable to work [] Unable to attend jewish [] Unable to walk/stand [] Unable to read [] Unable to drive [] Unable to eat/drink [] Unable to sleep [] Unable to be with family [] Patient intubated [] Other: Summary Time spent with patient 5 mi8n
[2024-08-01] MEDS: silver sulfadiazine cream 1% 50 gm 1 APPLIC TOPICAL ×2 (10:57→18:18)
--- NOTE | 2024-08-01 13:26 | P.CONIM_ITS ---
Providers/Reason For Consult 2 Consulting Physician/Specialty*: dr leon, hospitalist Reason for Consult*: plan for care of stroke Attending Physician: Jaye Leon MD Primary Care Provider: Althea Luna DO History of Present Illness History of Present Illness Breonna Castañeda is a 64 year old female who was admitted for recurrent symptoms of stroke yesterday. Her symptoms were clearly in the right middle cerebral artery distribution and she was admitted to have echocardiogram and monitor for any worsening symptoms. Without asking me, Dr. Crandall elected to proceed with an MRI. Dr. 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 I was called because Dr. Kunz is recommending heparin drip and Dr. Leon wondered if it was okay to go ahead with a heparin drip in the presence of an acute stroke. The patient with no prior history of hypertension presents after an episode three days ago (Tuesday, the ) where they dropped a coffee cup from their left arm, experienced slurred speech, confusion, and left arm weakness. The patient's daughter noted difficulty dressing, with the patient putting their arm in the wrong sleeve. She has been drooling out of the left side of the mouth. She has been ignoring her left side somewhat. The patient was evaluated in the ER 3 days ago, saying symptoms had resolved, and was discharged with a suspected TIA. She was discharged because she insisted on it as Dr. Morales recommended hospitalization. The following day the patient was mostly normal except for increased saliva production, slurred speech, and difficulty chewing and swallowing, particularly with water. The patient was able to eat chips in the afternoon and ate a cheeseburger Tuesday night. Yesterday, the patient reported left arm tingling and increased left- sided weakness compared to Tuesday. At that point she agreed to come back to the emergency department. Stroke alert was called and I talked with Dr. Morales. She was outside the window for thrombolytic therapy because her symptoms had been present for 3 days. It was clear she was having a right middle cerebral artery stroke with progression. The patient underwent an echocardiogram, which revealed a possible atrial myxoma. MRI showed blood clots in the distribution of the right middle cerebral artery, as expected. The patient denies a history of hypertension and reports being physically active. She is a heavy smoker. The patient is awaiting a transesophageal echocardiogram (PANCHO) for further evaluation. Transthoracic echocardiogram There is an ovoid heterogenous, mobile mass measuring 2.5 x 1.58 cm in size, attached to the lower part of the interatrial septum jutting into the mitral inflow. 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 Mild left ventricular hypertrophy. Grade I/IV diastolic dysfunction (abnormal relaxation filling pattern), normal to mildly elevated filling pressures. No significant valvular abnormalities Normal cardiac chamber sizes. No pericardial effusion No similar previous studies are available for comparison Dr Marjorie Kunz MD [facility] (Electronically Signed) Final Date: 01 August 2024 CTA head and neck 07/31/2024 1. No significant cervical ICA stenosis. 2. No proximal flow-limiting intracranial stenosis. Dictated By: Todd Medina MD Cholesterol 104, LDL 53 with HDL 36. CMP unremarkable. Hemoglobin A1c 6.0 Review of Systems 2 Narrative: No prior history of TIAs. She has some chronic cough from her tobacco use and COPD. She is pretty active and takes care of her baby granddaughter while her daughter and son-in-law are at work. No chest pain. No palpitations. No history of atrial fibrillation. Medications/Allergies Home Medications ?Medication ?Instructions ?Recorded ?Confirmed ?Last Taken ?Type loratadine 10 mg tablet 10 mg PO DAILY 10/06/2307/1507/31/24 History temazepam 15 mg capsule 15 mg PO BEDTIME PRN sleep 0 10/06/23 07/31/24 Unknown History atorvastatin 80 mg tablet (Lipitor) 80 mg PO DAILY #30 tabs 07/29/24 07/31/24 07/31/24 Rx aspirin 81 mg tablet,delayed 81 mg PO DAILY 07/31/24 0 07/31/24 07/31/24 History release tamsulosin 0.4 mg capsule 0.4 mg PO DAILY 07/31/2407/30/24 History Allergies Allergy/AdvReac Type Severity Reaction Status Date / Time amoxicillin Allergy rash Verified 05/02/23 13:48 Current Medications Generic Name Dose Route Start Last Admin Trade Name Freq PRN Reason Stop Dose Admin Aspirin 81 mg 08/01/24 09:00 08/01/24 09:42 Aspirin 81 Mg Ec Tablet PO 81 mg DAILY ELISA Administration Atorvastatin Calcium 80 mg 08/01/24 09:00 08/01/24 09:42 Atorvastatin 40 Mg Tablet PO 80 mg DAILY ELISA Administration Docusate Sodium 100 mg 07/31/24 18:00 08/01/24 09:43 Docusate Sodium 100 Mg Capsule PO Not Given BID ELISA Enoxaparin Sodium 30 mg 07/31/24 14:49 07/31/24 15:45 Enoxaparin 30 Mg/0.3 Ml Syringe SUBCUT 30 mg Q24H ELISA Administration Sodium Chloride 1,000 mls @ 125 mls/hr 07/31/24 15:45 08/01/24 05:16 Sodium Chloride 0.9% IV 125 mls/hr .Q8H ELISA Administration Silver Sulfadiazine 1 applic 07/31/24 18:00 08/01/24 10:57 Silver Sulfadiazine Cream 1% 50 Gm TOPICAL 1 applic BID ELISA Administration Temazepam 15 mg 07/31/24 15:48 07/31/24 20:38 Temazepam 15 Mg Capsule PO 15 mg BEDTIME PRN Administration SLEEP PFSH Acute 2 PFSH: Family History Father Hypertension Mother Dementia Diabetes Denies family history of Colon cancer Ovarian cancer Heart disease Breast cancer Uterine cancer Thyroid disease Stroke Vitals/I&O/Wt Last Vital Signs Temp 97.5 F L 08/01/24 11:49 Pulse 87 08/01/24 11:49 Resp 20 H 08/01/24 11:49 BP 123/66 08/01/24 11:49 Pulse Ox 92 08/01/24 11:49 O2 Del Method Room Air 08/01/24 11:49 07/31/24 08/01/24 08/01/24 22:59 06:59 14:59 Intake Total 240 / 240 1000 / 1240 480 / 480 Balance 240 / 240 1000 / 1240 480 / 480 Weight last 48 hrs Weight 185 lb Weight 185 lb 8 oz Weight 180 lb Physical Exam 2 Narrative: GENERAL: The patient was well-nourished with a healthy appearance and appropriately groomed. MENTAL STATUS: Speech dysarthric. Mild left hemineglect. CRANIAL NERVES: Visual acuity was intact to reading small print. Visual antoine were full to confrontation, direct and consensual. She tends to look to the right. Extraocular movements were full without nystagmus. Both slow pursuit and saccadic eye movements were normal but she tends to saccade back to the right. PERRLA. Flat left nasolabial fold. Facial sensation was intact in all three distributions of the fifth cranial nerve bilaterally to touch. Hearing was intact to soft spoken voice. Tongue and palate were midline at rest and with protrusion of the tongue and elevation of the palate. Shoulders were symmetric at rest and with shoulder shrug. MOTOR: She is a little apractic on the left SENSATION: Pin, touch intact in the four extremities distally. No extinction to double simultaneous sensory stimulation COORDINATION: No ataxia on [id number] or [id number] DEEP TENDON REFLEXES: 2/4 throughout. GAIT: She can march in place at the bedside HEENT: Normocephalic without dysmorphic features. Conjunctivae were not injected and sclerae were nonicteric. NECK: Carotid upstroke was strong bilaterally without bruits. The thyroid was not enlarged and there were no palpable lymph nodes. CHEST: Clear to auscultation. CARDIOVASCULAR: The heart sounds were normal without murmur or gallop. Regular rate and rhythm. EXTREMITIES: There was no edema or cyanosis. The skin was unremarkable. The spine exhibited normal thoracic kyphosis and normal lumbar lordosis without deformities. Data 07/31/24 13:10 07/31/24 13:10 A&P Assessment and plan (1) Acute right arterial ischemic stroke, middle cerebral artery (MCA): 64-year-old woman who presented with progressive right middle cerebral artery stroke over several days. Her symptoms were clear at the time of presentation and all within the right middle cerebral artery distribution. 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 (2) Atrial myxoma: Will discuss with Dr. Kunz but most likely this patient will require emergent surgical evaluation for resolution of this lesion. PDMP PDMP Reviewed: Not Reviewed Consult Attestations 2 Medical Necessity Statement: Acute right middle cerebral artery stroke evident by examination and history and present on CT scan 07/31/2024. Coding Level of Care Code Acute Code for [facility] Diagnoses Acute right arterial ischemic stroke, middle cerebral artery (MCA) I63.511 Atrial myxoma D15.1
--- NOTE | 2024-08-01 15:26 | P.PN_ITS ---
Subjective 2 Subjective: She is doing well today with no focal deficits. Her speech is back to baseline and she has not focal motor or sensory deficits. Echo showed heterogeneous mobile mass in the lower part of the interatrial septum concerning for atrial myxoma. Cardiology plans to do PANCHO tomorrow play Vitals/I&O/Wt Last Vital Signs Temp 97.5 F L 08/01/24 11:49 Pulse 87 08/01/24 11:49 Resp 20 H 08/01/24 11:49 BP 123/66 08/01/24 11:49 Pulse Ox 92 08/01/24 11:49 O2 Del Method Room Air 08/01/24 11:49 08/01/24 08/01/24 08/01/24 06:59 14:59 22:59 Intake Total 999 / 1240 1959 Balance 999 / 1240 1959 Weight last 48 hrs Weight 83.915 kg Weight 84.141 kg Weight 81.647 kg Physical Exam 2 Const: COMMON NORMALS: no acute distress and patient oriented x3 HENMT: COMMON NORMALS: normocephalic, atraumatic and moist oral mucous membranes HEAD & SCALP: normocephalic and atraumatic Eye: COMMON NORMALS: Equal, round and reactive pupils present, EOMs intact bilaterally and conjunctivae normal CONJUNCTIVA: Yes conjunctivae normal P UPIL: Yes Equal, round and reactive pupils present Neck/C-Spine: COMMON NORMALS: full ROM and no JVD Chest: COMMONS NORMALS: normal inspection of the chest Resp: COMMON NORMALS: normal respiratory effort and clear to auscultation bilaterally AUSCULTATION: clear to auscultation bilaterally Cardio: COMMON NORMALS: no JVD, regular rate, regular rhythm, S1 normal heart sound present, S2 normal heart sound present and No murmurs present (Cardio) RATE: regular rate RHYTHM: regular rhythm HEART SOUNDS: S1 normal heart sound present and S2 normal heart sound present GI: COMMON NORMALS: Normal to inspection, nondistended, normoactive bowel sounds present : COMMON NORMALS: Yes no CVA tenderness BLADDER/KIDNEY EXAM: Yes no CVA tenderness Back/Pelvis: COMMON NORMALS: no CVA tenderness Extremity: COMMON NORMALS: normal to inspection, full ROM and no pedal edema Neuro: COMMON NORMALS: patient oriented x3 Psych: COMMON NORMALS: Normal thought process present, cooperative and normal affect THOUGHT PROCESS: Normal thought process present Skin: COMMON NORMALS: no rashes or lesions noted GENERAL SKIN EXAM: no rashes or lesions noted Data 07/31/24 13:10 07/31/24 13:10 A&P Assessment and plan (1) Cerebrovascular accident: MRI head showed acute infarct involving the right insular cortex and right centrum semiovale ? No A-fib noted on telemetry ? TTE concerning for atrial myxoma ? N.p.o. after midnight for PANCHO in the a.m. ? Continue aspirin ? Neurology has been consulted and okay with heparin drip ? CT head and neck shows no occlusions therefore carotid Dopplers not necessary (2) Wheezing: Wheezing from cigarette usage Will order nebulizers as needed (3) Urinary retention with incomplete bladder emptying: Will restart her tamsulosin as above (4) Tobacco abuse: Counseled to quit for 4 minutes. She says she is not ready to quit. I explained how tobacco abuse is causing her stroke and this is the one risk factor that she can modify. She is not interested in quitting at this time (5) Atrial myxoma: Started heparin drip (okay with neurology) N.p.o. for PANCHO tomorrow Cardiology consulted Plan No intervention needed by PT and OT ROD STRAIGHTENER eval pending. Speech is back to baseline Telemetry monitoring Neurochecks every 4 hours Will discharge home with cardiac cath lab technologist PDMP PDMP Reviewed: Not Reviewed Attestations 2 Medical Necessity Statement*: Patient requires continued hospitalization. Care extends across 2 midnights. She appears to have an atrial myxoma and will need PANCHO tomorrow. Time Spent in Patient Care: Total time spent equals 50 minutes. Coding Level of Care Code 03390 Diagnoses Cerebrovascular accident I63.9 Wheezing R06.2 Urinary retention with incomplete bladder emptying R33.9 Tobacco abuse Z72.0 Atrial myxoma D15.1
--- NOTE | 2024-08-01 15:41 | PC.NURSE ---
pharmacy operations coordinator rounds at 1500- patient sitting on the side of the bed, family in room. Patient was seen by Dr. Infante today and was given the stroke education book. Patient states she is feeling back to baseline except her speech but no deficits noted during the time that I was visiting with her.
[2024-08-01 15:58] LABS: Platelet Count 248 10^3/cmm (157-399)
[2024-08-01] MEDS: heparin drip 25,000 UNIT/500 ML PREMIX 24 UNIT IV (16:37)
[2024-08-01] MEDS: heparin 5,000 unit/mL INJ 1 mL IVP (16:37)
--- NOTE | 2024-08-01 17:08 | PM.CONSULT ---
Providers/Reason For Consult Consulting Physician/Specialty*: ELDA Kunz MD/cardiology Reason for Consult*: Patient presents with CVA/echo evidence of left atrial myxoma Requesting Physician: Dr. Leon Attending Physician: Jaye Leon MD Primary Care Provider: Althea Luna DO History of Present Illness History of Present Illness Breonna Castañeda is a 64 year old female with no significant past medical history, is admitted to the hospital through the emergency room where she presented with recurrent episodes of left-sided weakness. She had an echocardiogram today which revealed a left atrial mass attached to the lower part of the interatrial septum, measuring 2.5 x 1.58 cm in size. Cardiology consult is requested for further cardiac evaluation recommendations. This patient has no previous history for any coronary disease, myocardial infarction or congestive heart failure. No history for hypertension, diabetes or previous CVA. Last Tuesday, this patient came into the emergency room with complaints of left weakness/numbness and slurring of speech. While being in the emergency room, her symptoms gradually improved. She was advised for admission but the patient insisted on going home. The patient felt okay up until yesterday evening when she had another episode of left arm weakness and tingling of the left side of the face. This time the weakness was more than what she had before. Even though the stroke protocol was initiated, because the patient was outside the timeframe, thrombolytic was not given. Her features are consistent with the CVA in the right middle cerebral artery distribution. The echocardiogram revealed a pedunculated mobile mass in the left atrium, attached to the lower part of the interatrial septum, measuring 2.5 x 1.558 cm, tumor flopping into the mitral inflow. LV ejection fraction was normal. No wall motion abnormalities. No pericardial effusion. Patient has a history of melanoma removed from the nose, 3 years ago. Smoking abuse, 1 pack a day for the last more than 20 years. No other substance abuse. Review of Systems Narrative: CONSTITUTIONAL: No fever or chills. EYES: No blurring of vision or other visual disturbances lately. ENT: No hoarseness of voice, auditory disturbances or sore throat. CARDIOVASCULAR: As mentioned above. RESPIRATORY: No significant cough. GASTROINTESTINAL: No hematemesis or melena. GENITOURINARY: No dysuria or hematuria. INTEGUMENTARY: No skin rashes or history of skin cancer. NEURO: As mentioned above PSYCHIATRIC: No history of psychosis or major depression. HEMATOLOGIC: No bleeding disorders or significant anemia. ENDOCRINE: No history of polyuria or polydipsia. MUSCULOSKELETAL: No recent joint pain or swelling. ALLERGY/IMMUNOLOGY: As mentioned above. Medications/Allergies Home Medications ?Medication ?Instructions ?Recorded ?Confirmed ?Last Taken ?Type loratadine 10 mg tablet 10 mg PO DAILY 10/06/23 07/31/24 07/31/24 History temazepam 15 mg capsule 15 mg PO BEDTIME PRN sleep 10/06/23 07/31/24 Unknown History atorvastatin 80 mg tablet (Lipitor) 80 mg PO DAILY #30 tabs 07/29/24 07/31/24 07/31/24 Rx aspirin 81 mg tablet,delayed 81 mg PO DAILY 07/31/24 07/31/24 07/31/24 History release tamsulosin 0.4 mg capsule 0.4 mg PO DAILY 07/31/24 07/31/24 07/30/24 History Allergies Allergy/AdvReac Type Severity Reaction Status Date / Time amoxicillin Allergy rash Verified 05/02/23 13:48 Current Medications Generic Name Dose Route Start Last Admin Trade Name Freq PRN Reason Stop Dose Admin Aspirin 81 mg 08/01/24 09:00 08/01/24 09:42 Aspirin 81 Mg Ec Tablet PO 81 mg DAILY ELISA Administration Atorvastatin Calcium 80 mg 08/01/24 09:00 08/01/24 09:42 Atorvastatin 40 Mg Tablet PO 80 mg DAILY ELISA Administration Docusate Sodium 100 mg 07/31/24 18:00 08/01/24 09:43 Docusate Sodium 100 Mg Capsule PO Not Given BID ELISA Sodium Chloride 1,000 mls @ 125 mls/hr 07/31/24 15:45 08/01/24 14:12 Sodium Chloride 0.9% IV Infused .Q8H ELISA Infusion Heparin Sodium/Sodium Chloride 25,000 unit in 500 mls @ 0 mls/hr 08/01/24 15:30 08/01/24 16:37 Heparin Drip IV 14.3 unit/kg/hr CONT ELISA 24 mls/hr Protocol Administration Per Protocol Silver Sulfadiazine 1 applic 07/31/24 18:00 08/01/24 10:57 Silver Sulfadiazine Cream 1% 50 Gm TOPICAL 1 applic BID ELISA Administration Temazepam 15 mg 07/31/24 15:48 07/31/24 20:38 Temazepam 15 Mg Capsule PO 15 mg BEDTIME PRN Administration SLEEP PFSH Acute PFSH: Family History Father Hypertension Mother Dementia Diabetes Denies family history of Colon cancer Ovarian cancer Heart disease Breast cancer Uterine cancer Thyroid disease Stroke Vitals/I&O/Wt Last Vital Signs Temp 98.2 F 08/01/24 16:00 Pulse 71 08/01/24 16:00 Resp 20 H 08/01/24 16:00 BP 127/69 08/01/24 16:00 Pulse Ox 97 08/01/24 16:00 O2 Del Method Room Air 08/01/24 16:00 08/01/24 08/01/24 08/01/24 06:59 14:59 22:59 Intake Total 1000 / 1240 1959 Balance 1000 / 1240 1959 Weight last 48 hrs Weight 185 lb Weight 185 lb 8 oz Weight 180 lb Physical Exam Narrative: GENERAL: The patient is alert and oriented times three. Not in any acute distress. HEENT: No significant pallor, icterus or lymphadenopathy.Oral cavity: There are no mucous membrane lesions. NECK: Trachea appears to be central. No masses noted. No JVD or thyromegaly appreciated. RESPIRATORY: Chest is symmetrical. No intercostals muscle retraction or any accessory muscle activation. There is no chest wall tenderness. Breath sounds are heard bilaterally. No rales or rhonchi heard. No evidence of any consolidation. BREASTS: Deferred. HEART: The heart sounds are normal. No S3 or S4. No significant murmurs. No pericardial rub ABDOMEN: No vessel pulsations or distention. No tenderness. No organomegaly appreciated. Bowel sounds are normally heard. : Deferred. RECTAL: Deferred. LYMPHATIC: No lymphadenopathy noted in the neck. EXTREMITIES: No edema or cyanosis. No clubbing. MUSCULOSKELETAL: No acute joint deformities or swelling SKIN: There are no significant rashes or ecchymosis NEUROPSYCHIATRIC: The patient is alert and oriented x3. Appears to be in a good mood. Very minimal motor weakness of the left upper extremity. Data 08/01/24 05:14 07/31/24 13:10 Other Labs: Laboratory Last Values WBC 8.58 10^3/uL (3.29-11.43) 07/31/24 13:10 RBC 5.02 10^6/uL (3.85-5.65) 07/31/24 13:10 Hgb 14.70 g/dL (11.27-16.99) 07/31/24 13:10 Hct 46.8 % (36-47) 07/31/24 13:10 MCV 93.2 fl (85-98) 07/31/24 13:10 MCH 29.3 pg (27-33) 07/31/24 13:10 MCHC 31.4 g/dL (30-55) 07/31/24 13:10 RDW 14.0 % (12.1-15.1) 07/31/24 13:10 Plt Count 248 10^3/cmm (157-399) 08/01/24 05:14 MPV 9.9 fL (7.4-10.4) 07/31/24 13:10 Neut % (Auto) 70.4 % 07/31/24 13:10 Lymph % (Auto) 21.8 % 07/31/24 13:10 Trigg % (Auto) 5.8 % 07/31/24 13:10 Eos % (Auto) 1.3 % 07/31/24 13:10 Baso % (Auto) 0.5 % 07/31/24 13:10 Neut # (Auto) 6.04 10^3/uL (1.8-7.7) 07/31/24 13:10 Lymph # (Auto) 1.9 10^3/uL (0.8-4.8) 07/31/24 13:10 Trigg # (Auto) 0.5 10^3/uL (0.2-0.9) 07/31/24 13:10 Eos # (Auto) 0.1 10^3/uL (0.0-0.8) 07/31/24 13:10 Baso # (Auto) 0.0 10^3/uL (0.0-0.1) 07/31/24 13:10 Nucleated RBC % (auto) 0 % 07/31/24 13:10 Nucleated RBCs # 0.0 /100WBC 07/31/24 13:10 PT 13.80 SECONDS (12.1-14.9) 07/31/24 13:10 INR 0.99 (0.8-1.2) 07/31/24 13:10 APTT 31.4 SECONDS (23.9-36.7) 07/31/24 13:10 Sodium 139 mmol/L (136-145) 07/31/24 13:10 Potassium 4.4 mmol/L (3.5-5.1) 07/31/24 13:10 Chloride 104 mmol/L (98-107) 07/31/24 13:10 Carbon Dioxide 23 mmol/L (22-29) 07/31/24 13:10 Anion Gap 16.4 (5-19) 07/31/24 13:10 BUN 17 mg/dL (8-23) 07/31/24 13:10 Creatinine 0.9 mg/dL (0.5-0.9) 07/31/24 13:10 GFR Calculation 63.2 mL/min (90-130) L 07/31/24 13:10 Glucose 96 mg/dL (65-115) 07/31/24 13:10 POC Glucose 94 mg/dL (70-110) 07/31/24 13:43 Estimat Average Glucose 126 08/01/24 05:14 Hemoglobin A1c 6.0 % (4.0-6.0) 08/01/24 05:14 Calculated Osmolality 289 mOsm/kg (285-295) 07/31/24 13:10 Calcium 9.7 mg/dL (8.5-10.5) 07/31/24 13:10 Total Bilirubin 0.5 mg/dL (0.15-1.2) 07/31/24 13:10 AST 18 U/L (0-32) 07/31/24 13:10 ALT 16 U/L (0-33) 07/31/24 13:10 Alkaline Phosphatase 108 U/L (35-105) H 07/31/24 13:10 Total Protein 7.4 g/dL (6.6-8.7) 07/31/24 13:10 Albumin 4.2 g/dL (3.5-5.2) 07/31/24 13:10 Globulin 3.2 g/dL (1.3-4.6) 07/31/24 13:10 Triglycerides 75 mg/dL (0-150) 08/01/24 05:14 Cholesterol 104 mg/dL (0-200) 08/01/24 05:14 LDL Cholesterol, Calc 53 mg/dL (50-129) 08/01/24 05:14 HDL Cholesterol 36 mg/dL (60-100) L 08/01/24 05:14 LDL/HDL Ratio 1.47 RATIO (0.00-3.22) 08/01/24 05:14 Cholesterol/HDL Ratio 2.89 mg/dL (0.0-4.40) 08/01/24 05:14 TSH 2.00 uIU/mL (0.27-4.20) 08/01/24 05:14 Urine Color Yellow (Yellow) 07/31/24 13:20 Urine Appearance Clear (CLEAR) 07/31/24 13:20 Urine pH 5.5 (5-7) 07/31/24 13:20 Ur Specific [place] 1.015 (1.005-1.030) 07/31/24 13:20 Urine Protein Negative (Negative) 07/31/24 13:20 Urine Glucose (UA) Negative (Normal) 07/31/24 13:20 Urine Ketones Negative (Negative) 07/31/24 13:20 Urine Blood Negative (Negative) 07/31/24 13:20 Urine Nitrate Negative (Negative) 07/31/24 13:20 Urine Bilirubin Negative (Negative) 07/31/24 13:20 Urine Urobilinogen 0.2 mg/dL (Negative) 07/31/24 13:20 Ur Leukocyte Esterase Negative (Negative) 07/31/24 13:20 Urine RBC 0-2 /hpf (0-2) 07/31/24 13:20 Urine WBC 0-5 /hpf (0-5) 07/31/24 13:20 Ur Squamous Epith Cells 0-5 /hpf (0-5) 07/31/24 13:20 Amorphous Sediment Not Reportable 07/31/24 13:20 Urine Bacteria None seen /hpf (NONE) 07/31/24 13:20 Hyaline Casts 0.81 /lpf 07/31/24 13:20 Urine Opiates Screen Negative ng/mL (Negative) 07/31/24 13:20 Ur Barbiturates Screen Negative ng/mL (Negative) 07/31/24 13:20 Ur Phencyclidine Scrn Negative ng/mL (Negative) 07/31/24 13:20 Ur Amphetamines Screen Negative ng/mL (Negative) 07/31/24 13:20 U Benzodiazepines Scrn Positive ng/mL (Negative) H 07/31/24 13:20 Urine Cocaine Screen Negative ng/mL (Negative) 07/31/24 13:20 U Marijuana (THC) Screen Negative ng/mL (Negative) 07/31/24 13:20 Ethyl Alcohol < 10 mg/dL (0-10) 07/31/24 13:10 Other data: The EKG Showed sinus tachycardia with a rate of [address] Ts. Echocardiogram from 07/31/2024 There is an ovoid heterogenous, mobile mass measuring 2.5 x 1.58 cm in size, attached to the lower part of the interatrial septum jutting into the mitral inflow. 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 Mild left ventricular hypertrophy. Grade I/IV diastolic dysfunction (abnormal relaxation filling pattern), normal to mildly elevated filling pressures. No significant valvular abnormalities Normal cardiac chamber sizes. No pericardial effusion No similar previous studies are available for comparison MRI 1. Acute infarct involving the right insular cortex and right centrum semiovale 2. Mild chronic ischemic changes also noted CTA of the head and neck 1. No significant cervical ICA stenosis. 2. No proximal flow-limiting intracranial stenosis. 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 Most likely this might be causing the recurrent CVA. (2) Acute right arterial ischemic stroke, middle cerebral artery (MCA): Patient is started on heparin. Her left sided weakness seems to be slowly improving (3) Smoking addiction: Patient is strongly advised to quit smoking Plan In view of the size of the left atrial mass and recurrent CVA, it would be appropriate to consider surgical intervention of the lesion, as early as possible. This was discussed with the patient and her family in detail which she understood well and consented to proceed. I contacted Dr. Coronel at the [facility]. Dr. Coronel discussed with Dr. Nunes, the cardiovascular surgeon. Dr. Nunes willing to accept her in transfer tonight. This was discussed with Dr. Leon, the primary attending. Dr. Leon concurred with this plan Thank you for the opportunity to eval this patient and make these recommendations PDMP PDMP Reviewed: Not Reviewed Coding Level of Care Code 13690 Diagnoses Left atrial mass I51.89 Acute right arterial ischemic stroke, middle cerebral artery (MCA) I63.511 Smoking addiction F17.200
--- NOTE | 2024-08-01 19:46 | P.TS_ITS ---
Transfer Summary Providers Date of Admission: 07/31/24 14:01 Date of Discharge/Transfer: 08/01/24 Attending Provider at Admission: David Crandall DO Attending Provider at Transfer: Jaye Leon MD Consults: Inpatient consult to cardiology Inpatient consults neurology Primary Care Provider: Althea Luna DO Transfer Plans: Anticipated date of transfer: 08/01/24 . Receiving Facility: [facility] . Receiving Provider: Dr. Nunes . Diagnoses at Discharge Discharge Diagnosis (1) Left atrial mass: Status: Acute (2) Acute right arterial ischemic stroke, middle cerebral artery (MCA): Status: Acute (3) Smoking addiction: Status: Acute Reason for Visit Reason for Visit left are numbness post mini stroke Brief History: . As you know is a 64-year-old female who presented with 2 days of slurred speech and left arm weakness. She was seen in the ED on Tuesday but declined admission because her symptoms had resolved spontaneously. Yesterday and today she had slurred speech and trouble holding her cup of coffee. CT head showed possible subacute small infarct in the right morrissey radiata. CTA head and neck did not show any significant stenosis. Hospital Course Hospital Course MRI head showed acute infarct involving the right insular cortex and right centrum semiovale. She has mild chronic ischemic changes as well. Her symptoms have completely resolved and her NIH score stroke was 0. Echocardiogram showed ovoid heterogenous mobile mass measuring 2.5 x 1.58 cm in size attached to lower part of the interatrial septum jutting into the mitral pool suggestive of a myxoma. She had preserved systolic function but grade I/IV diastolic function. Cardiology was consulted and recommended starting heparin drip. This was okay with neurology. Cardiology also recommended transfer to tertiary center for CT surgery. She has been accepted to [facility]. Physical Exam Const: COMMON NORMALS: no acute distress and patient oriented x3 HENMT: COMMON NORMALS: normocephalic, atraumatic and moist oral mucous membranes HEAD & SCALP: normocephalic and atraumatic Eye: COMMON NORMALS: Equal, round and reactive pupils present, EOMs intact bilaterally and conjunctivae normal CONJUNCTIVA: Yes conjunctivae normal PUPIL: Yes Equal, round and reactive pupils present Neck/C-Spine: COMMON NORMALS: full ROM and no JVD Chest: COMMONS NORMALS: normal inspection of the chest Resp: COMMON NORMALS: normal respiratory effort and clear to auscultation bilaterally AUSCULTATION: clear to auscultation bilaterally Cardio: COMMON NORMALS: no JVD, regular rate, regular rhythm, S1 normal heart sound present, S2 normal heart sound present and No murmurs present (Cardio) RATE: regular rate RHYTHM: regular rhythm HEART SOUNDS: S1 normal heart sound present and S2 normal heart sound present GI: COMMON NORMALS: Normal to inspection, nondistended, normoactive bowel sounds present : COMMON NORMALS: Yes no CVA tenderness BLADDER/KIDNEY EXAM: Yes no CVA tenderness Back/Pelvis: COMMON NORMALS: no CVA tenderness Extremity: COMMON NORMALS: normal to inspection, full ROM and no pedal edema Neuro: COMMON NORMALS: patient oriented x3 Psych: COMMON NORMALS: Normal thought process present, cooperative and normal affect THOUGHT PROCESS: Normal thought process present Skin: COMMON NORMALS: no rashes or lesions noted GENERAL SKIN EXAM: no rashes or lesions noted TS Data Studies Completed and Pending Pending at discharge Category Date Time Status PTT [Partial Thromboplastin Time] Timed Lab 08/01/24 22:00 Ordered Platelet Count Q2D Lab 08/03/24 04:00 Ordered Platelet Count Q2D Lab 08/05/24 04:00 Ordered Completed Studies During Hospitalization Category Date Time Status CT angio headneck* [id number] Stat Cat Scan 07/31/24 13:[address] head thrombolytic [id number] Stat Cat Scan 07/31/24 13:08 Completed MR head wo con* [id number] Routine MRI 07/31/24 14:49 Completed CV. echo complete* [id number] Routine Ultrasound 07/31/24 15:32 Completed Laboratory Last Values WBC 8.58 10^3/uL (3.29-11.43) 07/31/24 13:10 RBC 5.02 10^6/uL (3.85-5.65) 07/31/24 13:10 Hgb 14.70 g/dL (11.27-16.99) 07/31/24 13:10 Hct 46.8 % (36-47) 07/31/24 13:10 MCV 93.2 fl (85-98) 07/31/24 13:10 MCH 29.3 pg (27-33) 07/31/24 13:10 MCHC 31.4 g/dL (30-55) 07/31/24 13:10 RDW 14.0 % (12.1-15.1) 07/31/24 13:10 Plt Count 248 10^3/cmm (157-399) 08/01/24 05:14 MPV 9.9 fL (7.4-10.4) 07/31/24 13:10 Neut % (Auto) 70.4 % 07/31/24 13:10 Lymph % (Auto) 21.8 % 07/31/24 13:10 Mclean % (Auto) 5.8 % 07/31/24 13:10 Eos % (Auto) 1.3 % 07/31/24 13:10 Baso % (Auto) 0.5 % 07/31/24 13:10 Neut # (Auto) 6.04 10^3/uL (1.8-7.7) 07/31/24 13:10 Lymph # (Auto) 1.9 10^3/uL (0.8-4.8) 07/31/24 13:10 Mclean # (Auto) 0.5 10^3/uL (0.2-0.9) 07/31/24 13:10 Eos # (Auto) 0.1 10^3/uL (0.0-0.8) 07/31/24 13:10 Baso # (Auto) 0.0 10^3/uL (0.0-0.1) 07/31/24 13:10 Nucleated RBC % (auto) 0 % 07/31/24 13:10 Nucleated RBCs # 0.0 /100WBC 07/31/24 13:10 PT 13.80 SECONDS (12.1-14.9) 07/31/24 13:10 INR 0.99 (0.8-1.2) 07/31/24 13:10 APTT 31.4 SECONDS (23.9-36.7) 07/31/24 13:10 Sodium 139 mmol/L (136-145) 07/31/24 13:10 Potassium 4.4 mmol/L (3.5-5.1) 07/31/24 13:10 Chloride 104 mmol/L (98-107) 07/31/24 13:10 Carbon Dioxide 23 mmol/L (22-29) 07/31/24 13:10 Anion Gap 16.4 (5-19) 07/31/24 13:10 BUN 17 mg/dL (8-23) 07/31/24 13:10 Creatinine 0.9 mg/dL (0.5-0.9) 07/31/24 13:10 GFR Calculation 63.2 mL/min (90-130) L 07/31/24 13:10 Glucose 96 mg/dL (65-115) 07/31/24 13:10 POC Glucose 94 mg/dL (70-110) 07/31/24 13:43 Estimat Average Glucose 126 08/01/24 05:14 Hemoglobin A1c 6.0 % (4.0-6.0) 08/01/24 05:14 Calculated Osmolality 289 mOsm/kg (285-295) 07/31/24 13:10 Calcium 9.7 mg/dL (8.5-10.5) 07/31/24 13:10 Total Bilirubin 0.5 mg/dL (0.15-1.2) 07/31/24 13:10 AST 18 U/L (0-32) 07/31/24 13:10 ALT 16 U/L (0-33) 07/31/24 13:10 Alkaline Phosphatase 108 U/L (35-105) H 07/31/24 13:10 Total Protein 7.4 g/dL (6.6-8.7) 07/31/24 13:10 Albumin 4.2 g/dL (3.5-5.2) 07/31/24 13:10 Globulin 3.2 g/dL (1.3-4.6) 07/31/24 13:10 Triglycerides 75 mg/dL (0-150) 08/01/24 05:14 Cholesterol 104 mg/dL (0-200) 08/01/24 05:14 LDL Cholesterol, Calc 53 mg/dL (50-129) 08/01/24 05:14 HDL Cholesterol 36 mg/dL (60-100) L 08/01/24 05:14 LDL/HDL Ratio 1.47 RATIO (0.00-3.22) 08/01/24 05:14 Cholesterol/HDL Ratio 2.89 mg/dL (0.0-4.40) 08/01/24 05:14 TSH 2.00 uIU/mL (0.27-4.20) 08/01/24 05:14 Urine Color Yellow (Yellow) 07/31/24 13:20 Urine Appearance Clear (CLEAR) 07/31/24 13:20 Urine pH 5.5 (5-7) 07/31/24 13:20 Ur Specific Donnellson 1.015 (1.005-1.030) 07/31/24 13:20 Urine Protein Negative (Negative) 07/31/24 13:20 Urine Glucose (UA) Negative (Normal) 07/31/24 13:20 Urine Ketones Negative (Negative) 07/31/24 13:20 Urine Blood Negative (Negative) 07/31/24 13:20 Urine Nitrate Negative (Negative) 07/31/24 13:20 Urine Bilirubin Negative (Negative) 07/31/24 13:20 Urine Urobilinogen 0.2 mg/dL (Negative) 07/31/24 13:20 Ur Leukocyte Esterase Negative (Negative) 07/31/24 13:20 Urine RBC 0-2 /hpf (0-2) 07/31/24 13:20 Urine WBC 0-5 /hpf (0-5) 07/31/24 13:20 Ur Squamous Epith Cells 0-5 /hpf (0-5) 07/31/24 13:20 Amorphous Sediment Not Reportable 07/31/24 13:20 Urine Bacteria None seen /hpf (NONE) 07/31/24 13:20 Hyaline Casts 0.81 /lpf 07/31/24 13:20 Urine Opiates Screen Negative ng/mL (Negative) 07/31/24 13:20 Ur Barbiturates Screen Negative ng/mL (Negative) 07/31/24 13:20 Ur Phencyclidine Scrn Negative ng/mL (Negative) 07/31/24 13:20 Ur Amphetamines Screen Negative ng/mL (Negative) 07/31/24 13:20 U Benzodiazepines Scrn Positive ng/mL (Negative) H 07/31/24 13:20 Urine Cocaine Screen Negative ng/mL (Negative) 07/31/24 13:20 U Marijuana (THC) Screen Negative ng/mL (Negative) 07/31/24 13:20 Ethyl Alcohol < 10 mg/dL (0-10) 07/31/24 13:[address] 07/31/24 13:08 IMPRESSION: 1. No evidence of intracranial hemorrhage or mass effect. 2. Possible small subacute infarct in the RIGHT morrissey radiata extending into the basal ganglia is more conspicuous today. This could be followed up with MRI if indicated. 3. Maxillary and ethmoid sinusitis Notified Li Morales MD at 07/31/2024 1:30 PM. Head/Neck CTA 07/31/24 13:08 IMPRESSION: 1. No significant cervical ICA stenosis. 2. No proximal flow-limiting intracranial stenosis. Head MRI 07/31/24 14:49 IMPRESSION: 1. Acute infarct involving the right insular cortex and right centrum semiovale 2. Mild chronic ischemic changes also noted Recent Clincial Data Last Vital Signs Temp 98.2 F 08/01/24 17:00 Pulse 71 08/01/24 17:00 Resp 20 H 08/01/24 17:00 BP 127/69 08/01/24 17:00 Pulse Ox 97 08/01/24 16:00 O2 Del Method Room Air 08/01/24 16:00 Vital Signs Temp Pulse Resp BP Pulse Ox O2 Del Method 08/01/24 17:00 98.2 F 71 20 H 127/69 08/01/24 16:00 98.2 F 71 20 H 127/69 97 Room Air 08/01/24 11:49 97.5 F L 87 20 H 123/66 92 Room Air 08/01/24 08:00 97.7 F 82 19 H 101/67 93 Room Air Intake & Output/Weight 07/30/24 07/31/24 08/01/24 08/02/24 06:59 06:59 06:59 06:59 Intake Total 1240 / 1240 2440 / 2440 Balance 1240 / 1240 2440 / 2440 Weight 83.915 kg Vitals Last Vital Signs Temp 98.2 F 08/01/24 17:00 Pulse 71 08/01/24 17:00 Resp 20 H 08/01/24 17:00 BP 127/69 08/01/24 17:00 Pulse Ox 97 08/01/24 16:00 O2 Del Method Room Air 08/01/24 16:00 TS Medications Medications Acetaminophen (Acetaminophen 325 Mg Tablet) 650 mg PO Q6H PRN PRN Reason: Mild/Mod Pain Or Temp >/= 101 Al Hydrox/Mg Hydrox/Simethicone (Utcd-Yph-Wvidgrxvc-Ramos 30 Ml Udc) 15 ml PO Q6H PRN PRN Reason: INDIGESTION Aspirin (Aspirin 81 Mg Ec Tablet) 81 mg PO DAILY [facility] Last Admin: 08/01/24 09:42 Dose: 81 mg Atorvastatin Calcium (Atorvastatin 40 Mg Tablet) 80 mg PO DAILY [facility] Last Admin: 08/01/24 09:42 Dose: 80 mg Docusate Sodium (Docusate Sodium 100 Mg Capsule) 100 mg PO BID [facility] Last Admin: 08/01/24 17:56 Dose: Not Given Heparin Sodium (Porcine) (Heparin 5,000 Unit/Ml Inj 1 Ml) 0 unit IVP PRN PRN; Protocol PRN Reason: Heparin Weight Based Protocol -Subsequent Bolus Sodium Chloride (Sodium Chloride 0.9%) 1,000 mls @ 125 mls/hr IV .Q8H [facility] Last Admin: 08/01/24 17:56 Dose: 125 mls/hr Heparin Sodium/Sodium Chloride (Heparin Drip) 25,000 unit in 500 mls @ 0 mls/hr IV CONT ELISA; Protocol Last Admin: 08/01/24 16:37 Dose: 14.3 unit/kg/hr, 24 mls/hr Ibuprofen (Ibuprofen 200 Mg Tablet) 400 mg PO Q6H PRN PRN Reason: Mild/Mod Pain Or Temp >/= 101 Ondansetron HCl (Ondansetron 2 Mg/Ml Sdv 2 Ml) 4 mg IVP Q8H PRN PRN Reason: vomiting, or N/V if npo Silver Sulfadiazine (Silver Sulfadiazine Cream 1% 50 Gm) 1 applic TOPICAL BID [facility] Last Admin: 08/01/24 18:18 Dose: 1 applic Tamsulosin HCl (Tamsulosin 0.4 Mg Capsule) 0.4 mg PO DAILY [facility] Temazepam (Temazepam 15 Mg Capsule) 15 mg PO BEDTIME PRN PRN Reason: SLEEP Last Admin: 07/31/24 20:38 Dose: 15 mg Discontinued Medications Aspirin (Aspirin 81 Mg Chew Tablet) 324 mg PO NOW ONE Stop: 07/31/24 13:58 Last Admin: 07/31/24 14:09 Dose: 324 mg Atorvastatin Calcium (Atorvastatin 40 Mg Tablet) 80 mg PO BEDTIME [facility] Last Admin: 07/31/24 21:03 Dose: Not Given Clopidogrel Bisulfate (Clopidogrel 75 Mg Tablet) 75 mg PO DAILY [facility] Stop: 08/22/24 10:19 Last Admin: 08/01/24 15:33 Dose: Not Given Enoxaparin Sodium (Enoxaparin 30 Mg/0.3 Ml Syringe) 30 mg SUBCUT Q24H [facility] Last Admin: 08/01/24 15:34 Dose: Not Given Heparin Sodium (Porcine) (Heparin 5,000 Unit/Ml Inj 1 Ml) 0 unit IVP ONCE ONE; Protocol Stop: 08/01/24 15:29 Last Admin: 08/01/24 16:37 Dose: 4,200 unit Heparin Sodium/Sodium Chloride (Heparin Drip) 25,000 unit in 500 mls @ 20.14 mls/hr IV .Q24H ELISA Iohexol (Iohexol 350 Mg/Ml 500 Ml Btl (Per Ml)) 0 ml IV ONCE ONE Stop: 07/31/24 13:23 Last Admin: 07/31/24 13:22 Dose: 100 ml Allergies amoxicillin Allergy (Verified 05/02/23 13:48) rash Home Medications loratadine 10 mg tablet 10 mg PO DAILY 10/06/23 [History Confirmed 07/31/24] temazepam 15 mg capsule 15 mg PO BEDTIME PRN sleep 10/06/23 [History Confirmed 07/31/24] atorvastatin 80 mg tablet (Lipitor) 80 mg PO DAILY #30 tabs 07/29/24 [Rx Confirmed 07/31/24] aspirin 81 mg tablet,delayed release 81 mg PO DAILY 07/31/24 [History Confirmed 07/31/24] tamsulosin 0.4 mg capsule 0.4 mg PO DAILY 07/31/24 [History Confirmed 07/31/24] Discharge Plan Discharge Patient Disposition: Other Inst w Plan Readm Condition: Stable Prescriptions: No Action atorvastatin [Lipitor] 80 mg tablet 80 mg PO DAILY Qty: 30 0RF aspirin [Aspir-81] 81 mg Tablet,Delayed Release (Dr/Ec) 81 mg PO DAILY tamsulosin 0.4 mg capsule 0.4 mg PO DAILY loratadine 10 mg tablet 10 mg PO DAILY temazepam 15 mg capsule 15 mg PO BEDTIME PRN (Reason: sleep) Discharge Orders: Transfer Out of Facility (Order); Ordered 08/01/24 Ordered By: Jaye Leon Referrals: Carla Infante MD [Physician, Neurology] - 08/08/24 3:30 pm Referral Note: Jeremy,Althea Kia, DO [Primary Care Provider, FOOT[employer]ALL COACH] - 08/09/24 9:00 am Referral Note: appointment will be with Yolanda Almonte [employer] Discharge Diet: Cardiac Discharge Activity: Resume usual activity Transfer Attestations Time Spent in Transfer Care: greater than 30 min Quality Metrics Clinical Quality Measures [ Cerebrovascular Accident { Contraindication to Antithrombotic: None; antithrombotic prescribed; Contraindication to Anticoagulation: None; anti coagulation prescribed; Contraindication to Statin: None; Statin prescribed;}] Coding Level of Care Code Acute Code for g Fwd Diagnoses Left atrial mass I51.89 Acute right arterial ischemic stroke, middle cerebral artery (MCA) I63.511 Smoking addiction F17.200
[2024-08-01] MEDS: nicotine 21 mg Patch 1 PATCH TRANSDERMA (21:44)
[2024-08-01] MEDS: temazepam 15 mg Capsule PO (21:57)
[2024-08-01 22:36] LABS: Partial Thromboplastin Time 133.4 SECONDS (23.9-36.7)
--- NOTE | 2024-08-02 00:42 | PC.NURSE ---
report given to Damir CARROLL at [facility].
--- NOTE | 2024-08-02 00:44 | PC.NURSE ---
pt left with ambulance
[2024-08-02 00:46] VITALS: BP 121/75; PULSE 17; RESP 88; TEMP 526.4; TEMP 979.6; O2SAT 95
[2024-08-02 00:49] VITALS: BP 121/75; PULSE 17; RESP 88; TEMP 36.4; O2SAT 95
--- NOTE | 2024-08-02 00:52 | PC.NURSE ---
pt with Heparin set at 19ml/hr, when pt left along with 1 pump for heparin gtt. [facility] and next PTT draw time
== END 2024-08-02 00:52 | disposition other institution, planned readmission (95) ==
LOC: ER 14:04 → MEDSURG 14:24
PROVIDERS: Admitting Provider Internal Medicine; Emergency Provider Emergency Medicine; PCP Family Medicine; Visit Provider Student in an Organized Health Care Education/Training Program
DX: I63.511 Cerebral infarction due to unspecified occlusion or stenosis of right middle cerebral artery (principal); R29.702 NIHSS score 2; I51.89 Other ill-defined heart diseases; Z79.82 Long term (current) use of aspirin; F17.210 Nicotine dependence, cigarettes, uncomplicated; R06.2 Wheezing; R33.9 Retention of urine, unspecified; D15.1 Benign neoplasm of heart; Z82.49 Family history of ischemic heart disease and other diseases of the circulatory system
CPT/HCPCS: 36415; 36416; 70450; 70496; 70498; 70551; 80053; 80061; 80306; 80307; 81001; 82962; 83036; 84443; 85025; 85049; 85610; 85730; 92523; 92610; 93005; 93306; 96365; 96372; 96375; 97161; 97165; 99285; G0378; J1644; J1650; J7030; J9999

== ENCOUNTER 2024-08-21 13:07 | Outpatient (CLI) | payer MEDICAID, SELFPAY ==
--- NOTE | 2024-08-21 13:22 | XRR_ITS ---
PROCEDURE INFORMATION: Exam: XR Chest Exam date and time: 08/21/2024 1:32 PM Age: 64 years old Clinical indication: Cough; Prior surgery; Surgery date: <1 month; Surgery type: Recent open heart August 03; Additional info: Atrial myxoma/cough TECHNIQUE: Imaging protocol: Radiologic exam of the chest. Views: 2 views. COMPARISON: CT angio headneck* [id number] 07/31/2024 1:10 PM FINDINGS: Lungs: Bilateral perihilar and left mid lung linear opacities likely represent atelectasis or scarring. Small right and trace left pleural effusions with mild adjacent atelectasis or airspace disease. Pleural spaces: No appreciable pneumothorax. Heart/Mediastinum: No cardiomegaly. Left atrial appendage clip. Bones/joints: Median sternotomy changes. XR/XR chest 2V* [id number] IMPRESSION: Small right and trace left pleural effusion with mild adjacent atelectasis or airspace disease.
== END 2024-08-21 13:08 | disposition home or self-care (01) ==
LOC: RAD 13:13
PROVIDERS: PCP Family Medicine; Visit Provider Family Medicine
DX: R05.3 Chronic cough (principal); J91.8 Pleural effusion in other conditions classified elsewhere; R91.8 Other nonspecific abnormal finding of lung field
CPT/HCPCS: 71046

== ENCOUNTER 2025-02-05 09:23 | Outpatient (CLI) | payer MEDICAID, SELFPAY ==
[2025-02-05 09:36] VITALS: PULSE 92; RESP 18; O2SAT 98
== END 2025-02-05 09:24 | disposition home or self-care (01) ==
LOC: RT 09:24
PROVIDERS: PCP Family Medicine; Visit Provider Family Medicine
DX: R05.3 Chronic cough (principal); J98.8 Other specified respiratory disorders
CPT/HCPCS: 94060; 94729